=== PATIENT | male | born 1955 | race Caucasian/White ===

== ENCOUNTER 2020-08-14 07:42 | Outpatient (CLI) | payer MEDICARE, SELFPAY ==
[2020-08-14 07:56] LABS: Basophils Absolute Auto 0.05 K/mm3 (0.00-0.10); Basophils Percent Auto 0.8 % (0.0-1.0); Eosinophils Absolute Auto 0.65 K/mm3 (0.02-0.50); Eosinophils Percent Auto 9.8 % (1.0-6.0); Hematocrit 40.6 % (37.0-46.0); Hemoglobin 13.6 g/dL (12.4-15.3); Immature Granulocyte Absolute 0.02 K/mm3 (0.00-0.00); Immature Granulocyte Percent A 0.3 % (0.0-0.0); Lymphocytes Absolute Auto 1.73 K/mm3 (1.10-4.50); Lymphocytes Percent Auto 26.2 % (18.0-42.0); Mean Corpuscular HGB Conc 33.5 g/dL (32.0-36.0); Mean Corpuscular Hemoglobin 30.6 pg (27.0-31.0); Mean Corpuscular Volume 91.4 fL (78.0-102.0); Mean Platelet Volume 9.5 fl (8.7-11.0); Monocytes Absolute Auto 0.55 K/mm3 (0.10-0.90); Monocytes Percent Auto 8.3 % (2.0-11.0); Neutrophils Absolute Auto 3.6 K/mm3 (1.7-7.2); Neutrophils Percent Auto 54.6 % (50.0-70.0); Platelet Count Result 277 K/mm3 (150-420); Red Blood Count 4.44 M/mm3 (4.70-6.10); Red Cell Distribution Width 11.8 % (11.6-14.4); White Blood Count 6.6 K/mm3 (4.8-10.8)
== END 2020-08-14 07:43 | disposition home or self-care (01) ==
PROVIDERS: PCP Internal Medicine; Visit Provider Internal Medicine
DX: D64.0 Hereditary sideroblastic anemia (principal)
CPT/HCPCS: 36415; 85025

== ENCOUNTER 2021-01-20 08:40 | Outpatient (CLI) | payer MEDICARE, OTHER, SELFPAY | END 2021-01-20 08:41 | disposition home or self-care (01) | PROVIDERS: PCP Internal Medicine; Visit Provider Internal Medicine | DX: H93.19 Tinnitus, unspecified ear (principal) | CPT/HCPCS: 92557; 92567 ==

== ENCOUNTER 2022-03-18 08:14 | Outpatient (RCR) | payer MEDICARE, SELFPAY ==
--- NOTE | 2022-03-18 08:05 | PTOPEVAL ---
Thank you for referring José Damon to [facility].? The patient is scheduled to be seen for therapy? ____x/week for ___ weeks. Please review, sign, date and return this plan of care PAUL. I agree with and certify that the following plan of care is medically necessary. Referring Physician Date Admitting Provider: Attending Provider: Mellissa Morales MD Referring Provider: *PT Outpatient Evaluation Start: 03/18/22 07:00 Freq: Status: Active Protocol: Document 03/18/22 07:00 [facility] (Rec: 03/18/22 08:04 [facility] [id number]) Therapy Assessment Status Assessment Status Assessment Status Evaluation Evaluation Information Problem Diagnosis tinnitus, imbalance, chronic labrynthitis Onset 03/14/22 Subjective Information patient reports his MD is Query Text:As Reported By Patient/ wanting him to come over and Family have therapy. he reports he has ringing in his ears. 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 he reports he does not want to fall at work. he reports he had a foot operation years ago and reports he does not have al ot of feeling in the R foot. he attributes his balance issues to this issue. he reports he has fallen 0 times in the last month. he reports however he has fallen this year. 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 he reports no dizziness, but he just gets unsteady on his feet . he reports he is most unsteady in tight quarters. he reports in addition to his feet and imbalance he has back troubles as well. Prior Level of Function Comments Additional Prior Level of Function he reports he has been Comments unsteady for the past 2 years. he reports since losing weight he has been more unsteady. Pain Assessment Timing of Pain Assessment Timing of Pain Assessment Assessment Pain Scale Pain Scale Used Numeric (1 - 10) Self Report Pain Assessment Generalized Reported Pain Level 0 Pain Frequency Chronic,Intermittent Greatest Pain Intensity
--- NOTE | 2022-04-15 08:55 | PTOPEVAL ---
Thank you for referring José Damon to [facility].? The patient is scheduled to be seen for therapy? ____x/week for ___ weeks. Please review, sign, date and return this plan of care PAUL. I agree with and certify that the following plan of care is medically necessary. 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 He states that he often has to watch the floor when walking around his house due to being nervous about hitting objects on the floor. However, he has not had any falls since beginning therapy. He reports that he also feels more flexible. He also states that he has gym equipment at home and that he plans to get back to using the weights more. Pain Assessment Timing of Pain Assessment Timing of Pain Assessment Assessment Self Report Self Report Pain Level 0 Pain Score Pain Score 0: Self Report Lower Extremity Muscle Strength Testing Hip Strength Bilateral Hip Flexion Strength 5 Normal Hip Abduction Strength 4+ Good + Knee Strength Bilateral Knee Flexion Strength 5 Normal Knee Extension Strength 5 Normal Ankle Strength Right Ankle Dorsiflexion Strength 5 Normal Ankle Plantarflexion Strength 4+ Good + Left Ankle Dorsiflexion Strength 5 Normal Ankle Plantarflexion Strength 4+ Good + Palpation Assessment Palpation Palpation 15 STS in 30 sec Balance Assessment Tinetti Balance Assessment Sitting Balance Steady, safe Ability to Arise Able, w/o using arms Attempts to Arise Arises on 1st attempt Immediate Standing Balance Steady w/o support Standing Balance Narrow stance w/o support Nudged Response Steady Standing with Eyes Closed Steady Step Pattern Turning 360 Degrees Continuous steps S
== END 2022-04-15 10:23 | disposition home or self-care (01) ==
LOC: CHSPT 08:14
PROVIDERS: PCP Internal Medicine; Visit Provider Internal Medicine
DX: H93.19 Tinnitus, unspecified ear (principal); R26.89 Other abnormalities of gait and mobility
CPT/HCPCS: 97110; 97112; 97161; 97530

== ENCOUNTER 2022-03-22 08:12 | Outpatient (CLI) | payer MEDICARE, SELFPAY ==
--- NOTE | ~2022-03-22 | MR_ITS ---
EXAMINATION: MR brain/brain stem wo con DATE: 03/22/2022 09:04 INDICATION: 3 weeks of imbalance, ringing in the left ear and confusion TECHNIQUE: Magnetic resonance imaging (MRI) of the brain and brainstem was performed without intraven ous contrast. Sequences included sagittal and axial T1-weighted SE, axial diffusion-weighted FS SE, a xial T2*-weighted GRE, axial T2-weighted FLAIR, and axial T2-weighted FSE. Apparent diffusion coeffic ient (ADC) maps were created. COMPARISON: None. FINDINGS: There are no areas of restricted diffusion to suggest acute infarction. No intracranial hemorrhage or abnormal intracranial mass lesion. There are scattered areas of nonspecific increased T2-weighted si gnal intensity in the cerebral white matter, predominantly involving the deep and periventricular whi te matter. There are no intraparenchymal signal abnormalities seen on the other pulse sequences. The ventricles are symmetric and normal in size. There are no abnormal extra-axial fluid collections. Abdiel w voids are seen in the cerebral arteries on the T2-weighted sequences consistent with their expected patency. Moderate mucosal thickening the right ethmoid and sphenoid sinuses. Additional mild mucoper iosteal thickening the left ethmoid and left maxillary sinuses. Visualized orbits and soft tissues ar e otherwise unremarkable. IMPRESSION: 1. Moderate scattered periventricular predominant nonspecific white matter T2 hyperintensity likely s equela of chronic small vessel ischemic disease. No other acute intracranial process. Reviewed, dictated and finalized at location A. IMPRESSION: 1. Moderate scattered periventricular predominant nonspecific white matter T2 h yperintensity likely sequela of chronic small vessel ischemic disease. No other acute intracranial process.
== END 2022-03-22 08:13 | disposition home or self-care (01) ==
LOC: CHSIMG 08:14
PROVIDERS: PCP Internal Medicine; Visit Provider Internal Medicine
DX: H93.19 Tinnitus, unspecified ear (principal); R26.89 Other abnormalities of gait and mobility
CPT/HCPCS: 70551

== ENCOUNTER 2023-05-04 00:08 | Day surgery (SDC) | payer MEDICARE, SELFPAY ==
[2023-04-28 13:27] VITALS: BMI 28.5
[2023-05-04 10:22] VITALS: BP 134/76; PULSE 56; RESP 18; TEMP 36.4; O2SAT 100
[2023-05-04] MEDS: LACTATED RINGERS 1,000 ML 150 ML IV CONT (10:30)
--- NOTE | 2023-05-04 10:54 | PM.HPGS ---
History of Present Illness History of Present Illness Consent: Risks, benefits, and alternatives have been discussed and questions answered. Patient agrees to proceed with procedure. Chief complaint: hx colon polyps Narrative: José Damon is a 67 year old male Presents for screening colonoscopy. Patient is polyps on a previous colonoscopy 5 years ago. Patient's current weight appetite and bowel movements are normal. Patient denies abdominal pain. he has had no bleeding. Family history noncontributory. Patient presents today for neoplasia screening. Review of Systems Review of Systems: Review of systems noncontributory. [facility] Family History Family History Father Heart disease Social History Social History Smoking status: Never smoker Alcohol intake: current Drinks per week: 8 Alcohol use details: beer Substance use: never Substance use type: does not use Living arrangements: with family Spiritual care concerns: No Meds Home Medications and Allergies Home Medications Medication Instructions Recorded Confirmed Type atorvastatin 80 mg tablet 80 mg PO DAILY 07/01/21 04/28/23 History finasteride 1 mg tablet 1 mg PO DAILY 07/01/21 04/28/23 History lisinopril 2.5 mg tablet 2.5 mg PO DAILY 07/01/21 04/28/23 History metoprolol succinate 25 mg 12.5 mg PO BID 07/01/21 04/28/23 History tablet,extended release 24 hr sodium,potassium,mag sulfates 17.5 See Rx Instructions PO .COMPLEX 04/13/23 Rx gram-3.13 gram-1.6 gram oral soln #354 mL (Suprep Bowel Prep Kit) Adult Aspirin EC Low Strength 81 mg PO DAILY 04/28/23 04/28/23 History celecoxib 200 mg capsule 200 mg PO BID 04/28/23 04/28/23 History multivitamin with minerals-folic 1 tablet PO DAILY 04/28/23 04/28/23 History acid 0.4 mg tablet pantoprazole 40 mg tablet,delayed 40 mg PO DAILY 04/28/23 04/28/23 History release solifenacin 10 mg tablet 5 mg PO DAILY 04/28/23 04/28/23 History timolol maleate 0.5 % eye drops 1 drp LEFT EYE BID 04/28/23 04/28/23 History Allergies Allergy/AdvReac Type Severity Reaction Status Date / Time No Known Allergies Allergy Verified 05/04/23 10:20 Vital Signs Vital Signs - 24 hr 05/04/23 10:22 Temperature 97.5 F L Pulse Rate 56 L Respiratory Rate 18 Blood Pressure 134/76 Pulse Oximetry 100 Oxygen Delivery Room Air Exam Narrative: Physical exam reveals patient to be alert. Vital signs stable. HEENT exam is unremarkable. Patient is anicteric. Lungs are clear to auscultation and percussion. Heart is without murmur or extra sounds. Abdomen bowel sounds are present soft nontender with no organomegaly. Digital external rectal exam normal. Assessment and Plan Assessment and plan (1) History of colon polyps: Code(s): Z86.010 - Personal history of colonic polyps Status: Acute Assessment and Plan: Patient has a history of colon polyps. For this reason screening colonoscopy advised. Further recommendations may be given after endoscopy.
--- NOTE | 2023-05-04 11:00 | P.PNAN_ITS ---
Anes - Initial Pre Proc Eval Procedure: Operation Date: 05/04/23 11:30 Proposed Procedures p Colonoscopy - Barry Loyd MD Date/Time: 05/04/23 11:00 Surgeon: Barry Loyd MD Pre Op Diagnosis: hx colon polyps Patient Data Age: 67 Gender: M Height: 1.8 m Weight: 92.3 kg Last Vital Signs Temp 97.5 F L 05/04/23 10:22 Pulse 56 L 05/04/23 10:22 Resp 18 05/04/23 10:22 BP 134/76 05/04/23 10:22 Pulse Ox 100 05/04/23 10:22 O2 Del Method Room Air 05/04/23 10:22 Allergies Allergy/AdvReac Type Severity Reaction Status Date / Time No Known Allergies Allergy Verified 05/04/23 10:20 Home Medications Medication Instructions Recorded Confirmed Type atorvastatin 80 mg tablet 80 mg PO DAILY 07/01/21 04/28/23 History finasteride 1 mg tablet 1 mg PO DAILY 07/01/21 04/28/23 History lisinopril 2.5 mg tablet 2.5 mg PO DAILY 07/01/21 04/28/23 History metoprolol succinate 25 mg 12.5 mg PO BID 07/01/21 04/28/23 History tablet,extended release 24 hr sodium,potassium,mag sulfates 17.5 See Rx Instructions PO .COMPLEX 04/13/23 Rx gram-3.13 gram-1.6 gram oral soln #354 mL (Suprep Bowel Prep Kit) Adult Aspirin EC Low Strength 81 mg PO DAILY 04/28/23 04/28/23 History celecoxib 200 mg capsule 200 mg PO BID 04/28/23 04/28/23 History multivitamin with minerals-folic 1 tablet PO DAILY 04/28/23 04/28/23 History acid 0.4 mg tablet pantoprazole 40 mg tablet,delayed 40 mg PO DAILY 04/28/23 04/28/23 History release solifenacin 10 mg tablet 5 mg PO DAILY 04/28/23 04/28/23 History timolol maleate 0.5 % eye drops 1 drp LEFT EYE BID 04/28/23 04/28/23 History Patient hx anesthesia problems: none Family hx anesthesia problems: none Results Review: All pre-operative results and documents have been reviewed as part of the pre- operative evaluation. [facility] Family History Family History Father Heart disease Social History Social History Smoking status: Never smoker Alcohol intake: current Drinks per week: 8 Alcohol use details: beer Substance use: never Substance use type: does not use Living arrangements: with family Spiritual care concerns: No Anes - Eval Final PreProcedure Day of Procedure 05/04/23 11:00 Patient weight: normal Heart: regular rate and rhythm Lungs: clear to auscultation Airway: Mallampati scale class II Neurological: alert and oriented Last oral intake: >/= 8 hours ASA classification: III Emergent: no Anesthetic plan: proceed Anesthesia type and monitoring: general GIVS and standard monitoring Results Review: All pre-operative results and documents have been reviewed as part of the pre- operative evaluation. Informed Consent: The patient's anesthetic plan and its attendant risks and benefits were discussed with the patient/family/POA. Questions were solicited and answers provided to the satisfaction of the patient/family/POA.
[2023-05-04 11:20] VITALS: BP 136/60; PULSE 58; RESP 20; O2SAT 100
[2023-05-04 11:30] VITALS: BP 100/63; PULSE 54; RESP 20; O2SAT 100
[2023-05-04 11:40] VITALS: BP 116/68; PULSE 54; RESP 15; O2SAT 100
== END 2023-05-04 11:46 | disposition home or self-care (01) ==
PROVIDERS: PCP Internal Medicine; Visit Provider Internal Medicine Gastroenterology
PROC: 0DJD8ZZ Inspection of Lower Intestinal Tract, Via Natural or Artificial Opening Endoscopic (ICD-10-PCS; CPT 45378; principal; 2023-05-04 11:30)
DX: Z12.11 Encounter for screening for malignant neoplasm of colon (principal); K57.30 Diverticulosis of large intestine without perforation or abscess without bleeding; Z86.010 Personal history of colon polyps
CPT/HCPCS: G0105; J2704; J7120

== ENCOUNTER 2023-06-28 07:33 | Outpatient (CLI) | payer MEDICARE, SELFPAY ==
--- NOTE | ~2023-06-28 | CT_ITS ---
EXAMINATION: CT abdomen pelvis w con DATE: 06/28/2023 08:25 INDICATION: Right lower quadrant abdominal pain. TECHNIQUE: Computed tomography (CT) of the abdomen and pelvis was performed with 100 mL Omnipaque 350 intravenous contrast. Automated exposure control and iterative reconstruction technique were employe d. The dose-length product was 774.53 mGy-cm. COMPARISON: CT abdomen and pelvis 03/08/2019 FINDINGS: The visualized portions of the lung bases are clear without pneumonia or pleural effusion. The heart size is normal. No pericardial effusion. There is a small sliding hiatal hernia. There are cysts in the liver measuring up to 2.5 cm. The gallbladder, spleen, pancreas, adrenal glands, and lef t kidney are normal. There is a 2.1 cm cyst in right kidney. There is an umbilical hernia containing fat. The prostate is severely enlarged. There is a right inguinal hernia containing the appendix. The re is a left inguinal hernia containing fat. There is diverticulosis of the colon without evidence of diverticulitis. There is severe lumbar spondylosis. IMPRESSION: 1. Right inguinal hernia containing the appendix. 2. Left inguinal hernia containing fat. 3. Small sliding hiatal hernia. Reviewed, dictated and finalized at location A.
[2023-06-28 08:01] LABS: Estimated Glomerular Filt Rate > 60
== END 2023-06-28 07:34 | disposition home or self-care (01) ==
PROVIDERS: PCP Internal Medicine; Visit Provider Internal Medicine
DX: R10.31 Right lower quadrant pain (principal); K40.20 Bilateral inguinal hernia, without obstruction or gangrene, not specified as recurrent; K44.9 Diaphragmatic hernia without obstruction or gangrene
CPT/HCPCS: 74177; Q9967

== ENCOUNTER 2023-09-08 09:01 | Outpatient (CLI) | payer MEDICARE, SELFPAY ==
--- NOTE | 2023-09-08 09:25 | ECG_ITS ---
Measurements Intervals [place] Rate: 47 P: 23 W[place]: 219 QRS: -27 QRSD: 119 T: -19 QT: 442 QTc: 393 Interpretive Statements SINUS BRADYCARDIA WITH FIRST DEGREE AV BLOCK BORDERLINE LEFT AXIS DEVIATION [QRS AXIS < -20] MODERATE VOLTAGE CRITERIA FOR LVH, CONSIDER NORMAL VARIANT [MEETS CRITERIA IN ONE OF: R(aVL), S(V1), R(V5), R(V5/V6)+S(V1)] ABNORMAL ECG NO PREVIOUS ECG AVAILABLE FOR COMPARISON Electronically Signed On 09-08-2023 15:06:33 CDT by Reymundo Mcintosh M.D.
== END 2023-09-08 09:02 | disposition home or self-care (01) ==
LOC: ANHSURGERY 09:04
PROVIDERS: PCP Internal Medicine; Visit Provider Surgery
DX: Z01.818 Encounter for other preprocedural examination (principal); I25.10 Atherosclerotic heart disease of native coronary artery without angina pectoris; K40.20 Bilateral inguinal hernia, without obstruction or gangrene, not specified as recurrent
CPT/HCPCS: 36415; 86850; 86900; 86901; 93005

== ENCOUNTER 2023-09-13 00:25 | Day surgery (SDC) | payer MEDICARE, SELFPAY ==
[2023-09-05 13:29] VITALS: BMI 27.9
--- NOTE | 2023-09-05 13:30 | PC.NURSE ---
Report to the Outpatient Waiting Room, entrance under the green pavilion located off [facility], at time _0730_ on date _[id number]_. Planned Procedure Time: _0930_. Time changes happen often and if your time is changed the preop area will call you the afternoon before. - You and your visitor will be asked to self-screen and do not enter if you have any COVID symptoms. - A mask is optional within the hospital at this time. Patients may have clear liquids (water, carbonated beverages, clear teas, apple juice) until 3 hours prior to surgery with a maximum of 20 ounces. - No food from midnight until time of surgery Take the following medications with a SIP of water the morning of surgery: ___Metoprolol DO NOT STOP ANY OF YOUR OTHER PRESCRIPTION MEDICATIONS PRIOR TO SURGERY ?EXCEPT THE FOLLOWING Medications to discontinue per physician Multivitamin Date to take last [id number] Please no make-up, nail st helenian, hairspray, perfume, deodorant, or body powder the day of surgery. No jewelry (including any body piercings) or valuables the day of surgery, leave them at home. Please take a shower or bath the night before, or the morning of, surgery with an antibacterial soap. Wear comfortable, loose fitting clothing. - Jewelry must be removed prior to entering the operating room. Rings and piercings that are not removed may be cut off. - The hospital will not accept responsibility for valuables. - Please leave all valuables, including medications, at home the day of surgery. If you are going home after surgery, a licensed driver/guide must drive you home. - NO public transportation without another adult if you receive anesthesia. - We recommend that an adult stay with you for 24 hours following discharge. - We also recommend that you do not drive, make important decision, drink alcoholic beverages, or take any drugs that were not prescribed by your health care provider for at least 24 hours after your discharge time. Follow any additional instructions given to you from your surgeon. If you or anyone in your household have experienced Covid symptoms in the past week, please notify your surgeon or the nurse liaison at the phone number below for possible testing. Telephone instructions given to __José__and asked if any additional questions and then verbalized understanding. Patient advised to call surgeon office or pre surgery nurse liaison [phone] if any additional questions.
[2023-09-13] VITALS (10 sets, daily range): BP systolic 117–155; BP diastolic 52–75; PULSE 47–53; RESP 10–14; TEMP 36.4–37.2; O2SAT 99–100
[2023-09-13] MEDS: LACTATED RINGERS 1,000 ML 30 ML IV CONT ×2 (08:30→10:43)
[2023-09-13] MEDS: ACETAMINOPHEN 500 MG TABLET 1000 MG PO (08:30)
[2023-09-13] MEDS: KETOROLAC 15 MG/ML VIAL (*BKC) IV PUSH (08:30)
--- NOTE | 2023-09-13 08:42 | WPDHPUPDATE1 ---
History and Physical Update Update Date/Time: 09/13/23 08:42 History and Physical has been reviewed, including an updated exam of the patient. There are NO changes in the patient's condition. Risks, benefits, and alternatives have been discussed and questions answered. Patient agrees to proceed with procedure.
--- NOTE | 2023-09-13 08:42 | PM.IMHP ---
H&P: HPI History of Present Illness Date/Time: 09/13/23 08:42 Chief Complaint: Bilateral inguinal hernia Narrative: This is a 68-year-old man who was recently found to have bilateral inguinal hernias. He was mostly complaining of right groin pain but CT showed evidence of bilateral inguinal hernias. Now presents for bilateral inguinal hernia repair. He denies any changes since last seen in the office. Review of Systems Review of Systems: All systems reviewed & are unremarkable except as noted in HPI and below Constitutional: Constitutional: Denies chills, Denies fever(s), Denies headache(s) and Denies weight loss Eyes: Eyes: Denies change in vision ENT: Denies dizziness, Denies headache(s), Denies neck mass and Denies throat swelling Cardiovascular: Cardiovascular: Denies chest pain, Denies lightheadedness and Denies dyspnea Respiratory: Respiratory: Denies cough, Denies dyspnea and Denies wheezing Gastrointestinal: Gastrointestinal: Denies abdominal pain, Denies change in bowel habits, Denies nausea and Denies vomiting Genitourinary: Genitourinary: Denies hematuria and Denies dysuria Musculoskeletal: Musculoskeletal: Reports as per HPI Integumentary/Breasts: Skin/Breast: Reports as per HPI Neurologic: Denies dizziness and Denies headache(s) Allergic/Immunologic: Allergic/Immunologic: Denies throat swelling and Denies wheezing [facility] Past Medical History Medical History Heart disease Surgical History Surgical History H/O vasectomy History of foot surgery History of intravascular stent placement Family History Family History Father Heart disease Social History Social History Smoking status: Never smoker Alcohol intake: current Drinks per week: 8 Alcohol use details: beer Substance use: never Substance use type: does not use Living arrangements: with family Spiritual care concerns: No Meds Home Medications and Allergies Home Medications Medication Instructions Recorded Confirmed Type atorvastatin 80 mg tablet 80 mg PO DAILY 07/01/21 09/05/23 History finasteride 1 mg tablet 1 mg PO DAILY 07/01/21 09/05/23 History lisinopril 2.5 mg tablet 2.5 mg PO DAILY 07/01/21 09/05/23 History metoprolol succinate 25 mg 12.5 mg PO BID 07/01/21 09/05/23 History tablet,extended release 24 hr Adult Aspirin EC Low Strength 81 mg PO DAILY 04/28/23 09/05/23 History celecoxib 200 mg capsule 200 mg PO BID 04/28/23 09/05/23 History multivitamin with minerals-folic 1 tablet PO DAILY 04/28/23 09/05/23 History acid 0.4 mg tablet solifenacin 10 mg tablet 5 mg PO DAILY 04/28/23 09/05/23 History timolol maleate 0.5 % eye drops 1 drp LEFT EYE BID 04/28/23 09/05/23 History Allergies Allergy/AdvReac Type Severity Reaction Status Date / Time No Known Allergies Allergy Verified 09/05/23 13:17 Exam Const: General: no acute distress and alert Orientation/consciousness: patient oriented x3 HENMT: Head: normocephalic and atraumatic Ears: hearing grossly normal bilaterally Face/Nose/Sinus: Normal nares present Mouth: Yes Normal oral and palatal mucosa present Eyes: Periorbital: periorbital findings normal Sclera: sclerae normal EOM: EOMs intact bilaterally Neck: Neck: normal visual inspection, no lymphadenopathy and trachea midline Chest: Chest palpation & inspection: normal inspection of the chest Resp: Effort & Inspection: normal respiratory effort Auscultation: clear to auscultation bilaterally Cardio: Jugular venous distension: no JVD Rate: regular rate Rhythm: regular rhythm Heart sounds: S1 normal heart sound present and S2 normal heart sound present Peripheral pulses: Peripheral pulses 2+ throughout GI: Inspection: normal to inspection GI Palp:
--- NOTE | 2023-09-13 08:51 | P.PNAN_ITS ---
Anes - Initial Pre Proc Eval Procedure: Operation Date: 09/13/23 09:30 Proposed Procedures p Laparoscopic Bilateral Inguinal Hernia Repair with Mesh, Davinci Assisted - Mor Rossi DO Date/Time: 09/13/23 08:51 Surgeon: Mor Rossi DO Pre Op Diagnosis: bilat inguinal hernia Patient Data Age: 68 Gender: M Height: 1.8 m Weight: 90.9 kg Allergies Allergy/AdvReac Type Severity Reaction Status Date / Time No Known Allergies Allergy Verified 09/05/23 13:17 Home Medications Medication Instructions Recorded Confirmed Type atorvastatin 80 mg tablet 80 mg PO DAILY 07/01/21 09/05/23 History finasteride 1 mg tablet 1 mg PO DAILY 07/01/21 09/05/23 History lisinopril 2.5 mg tablet 2.5 mg PO DAILY 07/01/21 09/05/23 History metoprolol succinate 25 mg 12.5 mg PO BID 07/01/21 09/05/23 History tablet,extended release 24 hr Adult Aspirin EC Low Strength 81 mg PO DAILY 04/28/23 09/05/23 History celecoxib 200 mg capsule 200 mg PO BID 04/28/23 09/05/23 History multivitamin with minerals-folic 1 tablet PO DAILY 04/28/23 09/05/23 History acid 0.4 mg tablet solifenacin 10 mg tablet 5 mg PO DAILY 04/28/23 09/05/23 History timolol maleate 0.5 % eye drops 1 drp LEFT EYE BID 04/28/23 09/05/23 History Patient hx anesthesia problems: none Family hx anesthesia problems: none Results Review: All pre-operative results and documents have been reviewed as part of the pre- operative evaluation. [facility] Past Medical History Medical History Heart disease Surgical History Surgical History H/O vasectomy History of foot surgery History of intravascular stent placement Family History Family History Father Heart disease Social History Social History Smoking status: Never smoker Alcohol intake: current Drinks per week: 8 Alcohol use details: beer Substance use: never Substance use type: does not use Living arrangements: with family Spiritual care concerns: No Anes - Eval Final PreProcedure Day of Procedure 09/13/23 08:51 Patient weight: overweight Heart: regular rate and rhythm Lungs: clear to auscultation Airway: Mallampati scale class II Neurological: alert and oriented Last oral intake: >/= 8 hours ASA classification: III Emergent: no Anesthetic plan: proceed Anesthesia type and monitoring: general ETT and standard monitoring Results Review: All pre-operative results and documents have been reviewed as part of the pre- operative evaluation. Informed Consent: The patient's anesthetic plan and its attendant risks and benefits were discussed with the patient/family/POA. Questions were solicited and answers provided to the satisfaction of the patient/family/POA.
[2023-09-13] MEDS: ceFAZolin 2 GM/D5W 50 ML 2 GM/50 ML BAG IVPB (09:16)
[2023-09-13] MEDS: BUPIVACAINE/EPINEPHRINE 0.5% 50 ML VIAL 30 ML INFILTRATE (09:40)
--- NOTE | 2023-09-13 10:37 | W.PM.PROC2 ---
Procedure Note - Detailed Date of Procedure 09/13/23 Pre-op Diagnosis Bilateral inguinal hernia Post-op Diagnosis Same (Bilateral indirect inguinal hernia) Procedure Performed Laparoscopic bilateral inguinal hernia repair with mesh, da Sohail assisted Surgeon Mor Rossi DO Anesthesia General and Local (0.5% bupivacaine with epinephrine) Indications This is a 68-year-old man who presented with the right groin bulge and discomfort over the past 3 months. He was found to have a reducible right inguinal hernia exam. CT also showed evidence a left inguinal hernia. Discussions were made with the patient about treatment options and decision was made to proceed with robotic assisted laparoscopic bilateral inguinal hernia repair with mesh Findings Laparoscopic bilateral inguinal hernia repair was performed. The patient was found to have a moderate-sized indirect right inguinal hernia and a small indirect left inguinal hernia. Robotic transabdominal preperitoneal approach was utilized. A wide enough preperitoneal pocket was created bilaterally and large 3DMax mid mesh was placed overlying each myopectineal orifice. No specimens were obtained for pathology. Description of Procedure Procedure as well as risks, benefits, and alternatives were discussed with the patient. Written consent was obtained and placed in chart prior to procedure. Patient was brought back to surgical suite. He was placed supine on operating table. Time-out was done to confirm patient and procedure. He was then intubated by Anesthesia Department. His abdomen was prepped and draped in sterile fashion using chlorhexidine prep. 0.5% bupivacaine with epinephrine was infiltrated at each location for incision. An 8 mm incision was made in the left lateral abdomen, and a 5 mm Optiview trocar was advanced through the abdominal layers under direct visualization. Once inside the abdominal cavity, carbon dioxide insufflation was used to create a pneumoperitoneum. A camera was inserted and the abdominal cavity was inspected. The patient was placed in slight Trendelenburg position. An 8 millimeter incision was made on the right lateral abdomen and an 8 millimeter trocar was inserted under direct visualization. Another 8 millimeter incision was made just superior to the umbilicus and an 8 millimeter trocar was inserted under direct visualization. The 5 mm port was then removed and this was replaced with another 8 mm robotic port. The robotic arms were brought up to the patient's bedside and secured to the ports. The camera and instruments were inserted. I then moved over to the robotic console and took control of the camera and instruments. After careful inspection of the abdominal cavity, I began scoring the peritoneum along the right lower quadrant using scissors with electrocautery. The preperitoneal plane was entered and this was carefully dissected caudally along the inferior epigastric vessels. Careful dissection with scissors with electrocautery and blunt dissection was used to continue this dissection. I dissected far enough laterally to allow for mesh placement, and also dissected medially to identify the pubic arch and Maldonado's ligament. The hernia sac was identified and carefully dissected posteriorly. The cord contents were also identified and the peritoneum was carefully dissected far enough posteriorly to allow for mesh placement. Once an adequate pocket was created, I then placed the mesh within the preperitoneal pocket and carefully unfolded it. The mesh was centered on the hernia defect with adequate overlap circumferentially. The inferior edge of the mesh was inspected to ensure that it was far enough away from the peritoneal edge. The mesh appeared in proper position overlying the entire myopectineal orifice. The mesh was secured using 3-0 Vicryl simple interrupted sutures in Maldonado's ligament, the superior medial edge, and superior lateral edge of the mesh. The peritone
[2023-09-13] MEDS: oxyCODONE HCL (*CRX) 5 MG TAB IR PO (13:11)
== END 2023-09-13 13:46 | disposition home or self-care (01) ==
PROVIDERS: PCP Internal Medicine; Visit Provider Surgery
PROC: 8E0Y4CZ Robotic Assisted Procedure of Lower Extremity, Percutaneous Endoscopic Approach (ICD-10-PCS; CPT 49650; principal; 2023-09-13 09:30)
DX: K40.20 Bilateral inguinal hernia, without obstruction or gangrene, not specified as recurrent (principal); I51.9 Heart disease, unspecified; Z95.828 Presence of other vascular implants and grafts; Z79.82 Long term (current) use of aspirin
CPT/HCPCS: 49650; S2900; A9270; C1781; J0690; J1100; J1885; J2250; J2270; J2405; J2704; J2710; J7120

== ENCOUNTER 2024-03-18 09:45 | Outpatient (CLI) | payer MEDICARE, SELFPAY ==
[2024-03-18 10:06] LABS: Basophils Absolute Auto 0.05 K/mm3 (0.00-0.10); Basophils Percent Auto 0.8 % (0.0-1.0); Eosinophils Absolute Auto 0.34 K/mm3 (0.02-0.50); Eosinophils Percent Auto 5.3 % (1.0-6.0); Hematocrit 39.7 % (37.0-46.0); Hemoglobin 13.3 g/dL (12.4-15.3); Immature Granulocyte Absolute 0.02 K/mm3 (0.00-0.00); Immature Granulocyte Percent A 0.3 % (0.0-0.0); Lymphocytes Absolute Auto 1.38 K/mm3 (1.10-4.50); Lymphocytes Percent Auto 21.7 % (18.0-42.0); Mean Corpuscular HGB Conc 33.5 g/dL (32-36); Mean Corpuscular Hemoglobin 30.2 pg (27.0-31.0); Mean Corpuscular Volume 90.2 fL (78.0-102.0); Mean Platelet Volume 9.7 fl (8.7-11.0); Monocytes Absolute Auto 0.74 K/mm3 (0.10-0.90); Monocytes Percent Auto 11.6 % (2.0-11.0); Neutrophils Absolute Auto 3.84 K/mm3 (1.70-7.20); Neutrophils Percent Auto 60.3 % (50.0-70.0); Platelet Count Result 279 K/mm3 (150-420); Red Cell Distribution Width 12.1 % (11.6-14.4); White Blood Count 6.4 K/mm3 (4.8-10.8)
[2024-03-18 11:04] LABS: Alanine Aminotransferase 37 U/L (16-63); Albumin Level 3.5 g/dL (3.4-5.0); Alkaline Phosphatase 69 U/L (46-116); Anion Gap 8 mmol/L (4-12); Aspartate Amino Transferase 22 U/L (15-37); Bilirubin,Total 0.7 mg/dL (0.00-1.00); Blood Urea Nitrogen 15 mg/dL (7-18); CRP 1.6 mg/dL (0.0-0.9); Calcium 8.6 mg/dL (8.5-10.1); Carbon Dioxide 30 mmol/L (21-32); Chloride 106 mmol/L (98-108); Estimated Glomerular Filt Rate > 60; Glucose 103 mg/dL (70-99); Osmolality Calculated 298 mOsm/kg (285-295); Potassium 4.6 mmol/L (3.5-5.1); Sodium 144 mmol/L (136-145); Total Protein 6.2 g/dL (6.4-8.2)
[2024-03-18 11:11] LABS: Erythrocyte Sedimentation Rate 8 mm/hr (0-20)
== END 2024-03-18 09:46 | disposition home or self-care (01) ==
LOC: CHSLAB 09:46
PROVIDERS: PCP Internal Medicine; Visit Provider Internal Medicine
DX: R19.7 Diarrhea, unspecified (principal)
CPT/HCPCS: 36415; 80053; 83605; 85025; 85652; 86140

== ENCOUNTER 2024-03-19 07:14 | Outpatient (CLI) | payer MEDICARE, SELFPAY ==
[2024-03-19 08:13] LABS: Toxigenic C. Diff NEGATIVE (NEGATIVE)
[2024-03-25 14:16] LABS: Rotavirus Stool Not Detected
[2024-03-25 14:17] LABS: Norovirus RNA PCR, Stool Not Detected
== END 2024-03-19 07:15 | disposition home or self-care (01) ==
LOC: CHSLAB 07:16
PROVIDERS: PCP Internal Medicine; Visit Provider Internal Medicine
DX: R19.7 Diarrhea, unspecified (principal)
CPT/HCPCS: 83993; 87045; 87177; 87209; 87425; 87427; 87449; 87493; 87798

== ENCOUNTER 2024-03-22 12:58 | Outpatient (CLI) | payer MEDICARE, SELFPAY ==
--- NOTE | ~2024-03-22 | CT_ITS ---
CT of the Abdomen and Pelvis: Indication: Abdominal pain Technique: 2.5 mm axial scans were obtained through the abdomen and pelvis following intravenous adm inistration of 100 cc of Omnipaque 350. Dose reduction technique was used on this scan by utilizing a utomated exposure control and iterative reconstruction technique. The dose-length product (DLP) was 8 01.26 mGy-cm. COMPARISON: 06/28/2023 Findings: Scans through the lung bases are unremarkable. Stable hepatic cyst present. The liver, spleen, pancreas, gallbladder, adrenals and kidneys are other bennett within normal limits. No evidence of aortic aneurysm. No lymphadenopathy. No bowel obstruction or bowel wall thickening. There is no evidence to suggest acute appendicitis. Images through the pelvis were performed. Possible mild diffuse urinary bladder wall thickening. Pros rojas gland is markedly enlarged. Small bilateral fat-containing inguinal hernias are present. No asci zamzam. Impression: Questionable cystitis. Correlate with urinalysis. Markedly enlarged prostate gland. Small bilateral fat-containing inguinal hernias. Reviewed, dictated and finalized at location . Impression: Questionable cystitis. Correlate with urinalysis. Markedly enlarged prostate gland. Small bilateral fat-containing inguinal hernias.
== END 2024-03-22 12:59 | disposition home or self-care (01) ==
LOC: CHSIMG 12:58
PROVIDERS: PCP Internal Medicine; Visit Provider Internal Medicine
DX: R10.9 Unspecified abdominal pain (principal); R19.7 Diarrhea, unspecified; N40.0 Benign prostatic hyperplasia without lower urinary tract symptoms; K40.20 Bilateral inguinal hernia, without obstruction or gangrene, not specified as recurrent
CPT/HCPCS: 74177; Q9967

== ENCOUNTER 2024-03-27 10:08 | Outpatient (CLI) | payer MEDICARE, SELFPAY ==
[2024-03-30 04:13] LABS: Immunoglobulin A 173 mg/dL (70-320); TTG IGA AB <1.0 U/mL
[2024-03-31 12:59] LABS: S cerevisiae Ab (IgA) 11.5 U (<=20.0); S cerevisiae Ab (IgG) 19.3 U (<=20.0)
[2024-03-31 22:36] LABS: ANCA Screen Negative (Negative)
[2024-04-01 20:18] LABS: Myeloperoxidase Ab <1.0 AI (<1.0); Proteinase-3 Ab <1.0 AI (<1.0)
[2024-04-03 14:43] LABS: Fecal Fat, Ql Normal (Normal)
[2024-04-04 18:43] LABS: Calprotectin, Stool 1090 mcg/g
== END 2024-03-27 10:09 | disposition home or self-care (01) ==
LOC: CHSLAB 10:17
PROVIDERS: PCP Internal Medicine; Visit Provider Internal Medicine
DX: R19.7 Diarrhea, unspecified (principal)
CPT/HCPCS: 36415; 82705; 82784; 83516; 83993; 86036; 86671

== ENCOUNTER 2024-05-01 21:26 | Emergency (ER) | payer MEDICARE, SELFPAY ==
[2024-05-01] VITALS (8 sets, daily range): BP systolic 144–178; BP diastolic 73–94; PULSE 60–68; RESP 15–18; TEMP 36.7; O2SAT 96–100
--- NOTE | ~2024-05-01 | XR_ITS ---
EXAMINATION: XR chest 1V portable DATE: 05/01/2024 21:58 INDICATION: Chest pain TECHNIQUE: frontal view of the chest was obtained. COMPARISON: Chest radiograph dated 08/31/2017 FINDINGS: The lungs remain clear with no focal airspace opacities, pulmonary edema, pleural effusion or pneumot horax. The cardiomediastinal silhouette is normal. Visualized bones and soft tissues are unremarkable . IMPRESSION: 1. No acute cardiopulmonary disease. Reviewed, dictated and finalized at location A.
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
--- NOTE | 2024-05-01 21:34 | ECG_ITS ---
Test Date: 2024-05-01 21:34:28 Measurements Intervals [place] Rate: 72 P: 41 [place]: 174 QRS: -28 QRSD: 108 T: 4 QT: 402 QTc: 443 Interpretive Statements SINUS RHYTHM WITH OCCASIONAL VENTRICULAR PREMATURE COMPLEXES BORDERLINE LEFT AXIS DEVIATION [QRS AXIS < -20] MODERATE VOLTAGE CRITERIA FOR LVH, CONSIDER NORMAL VARIANT [MEETS CRITERIA IN ONE OF: R(aVL), S(V1), R(V5), R(V5/V6)+S(V1)] ABNORMAL ECG No previous ECG available for comparison Electronically Signed On 05-03-2024 11:01:34 CDT by Gavino Rajan M.D.
--- NOTE | 2024-05-01 21:36 | PC.NURSE ---
ER provider at the bedside
--- NOTE | 2024-05-01 21:52 | PC.NURSE ---
xray at the bedside
[2024-05-01 21:55] LABS: Basophils Absolute Auto 0.08 K/mm3 (0.00-0.10); Eosinophils Absolute Auto 0.65 K/mm3 (0.02-0.50); Eosinophils Percent Auto 8.3 % (1.0-6.0); Hematocrit 38.9 % (37.0-46.0); Hemoglobin 13.4 g/dL (12.4-15.3); Immature Granulocyte Absolute 0.06 K/mm3 (0.00-0.00); Immature Granulocyte Percent A 0.8 % (0.0-0.0); Lymphocytes Absolute Auto 1.48 K/mm3 (1.10-4.50); Lymphocytes Percent Auto 18.9 % (18.0-42.0); Mean Corpuscular HGB Conc 34.4 g/dL (32-36); Mean Corpuscular Hemoglobin 31.4 pg (27.0-31.0); Mean Corpuscular Volume 91.1 fL (78.0-102.0); Monocytes Absolute Auto 0.75 K/mm3 (0.10-0.90); Monocytes Percent Auto 9.6 % (2.0-11.0); Neutrophils Absolute Auto 4.81 K/mm3 (1.70-7.20); Neutrophils Percent Auto 61.4 % (50.0-70.0); Platelet Count Result 307 K/mm3 (150-420); Red Blood Count 4.27 M/mm3 (4.70-6.10); Red Cell Distribution Width 12.3 % (11.6-14.4); White Blood Count 7.8 K/mm3 (4.8-10.8)
[2024-05-01] MEDS: ASPIRIN 81 MG CHEWABLE TABLET 243 MG PO (21:56)
[2024-05-01 22:09] LABS: Partial Thromboplastin Time 23.6 Sec (23.9-30.70); Prothrombin Time 10.7 Seconds (9.50-12.1)
[2024-05-01 22:13] LABS: Lactic Acid Reflex 1.4 mmol/L (0.4-2.0)
[2024-05-01 22:29] LABS: Troponin I 29.3 ng/L (0.00-60.4)
[2024-05-01 22:48] LABS: Albumin Level 3.7 g/dL (3.4-5.0); Alkaline Phosphatase 74 U/L (46-116); Aspartate Amino Transferase 28 U/L (15-37); Bilirubin,Total 0.4 mg/dL (0.00-1.00); Blood Urea Nitrogen 20 mg/dL (7-18); Estimated CRCL calculation 65 ml/min; Estimated Glomerular Filt Rate > 60; Glucose 156 mg/dL (70-99); Total Protein 6.7 g/dL (6.4-8.2)
[2024-05-01 22:49] LABS: Alanine Aminotransferase 49 U/L (16-63); Anion Gap 9 mmol/L (4-12); Calcium 8.1 mg/dL (8.5-10.1); Carbon Dioxide 27 mmol/L (21-32); Chloride 105 mmol/L (98-108); NT Pro B Type Natriuretic Pept 289 pg/mL (0-125); Osmolality Calculated 297 mOsm/kg (285-295); Potassium 4.3 mmol/L (3.5-5.1); Sodium 141 mmol/L (136-145)
--- NOTE | 2024-05-01 23:23 | PC.NURSE ---
ER provider at the bedside. patient reports that his chest pain has resolved
--- NOTE | 2024-05-01 23:35 | PC.NURSE ---
EKG due at [address] emerson
[2024-05-02] VITALS (8 sets, daily range): BP systolic 120–164; BP diastolic 63–79; PULSE 63–70; RESP 16–21; O2SAT 95–98
--- NOTE | 2024-05-02 00:04 | PC.NURSE ---
patient resting on stretcher in room. call light in reach. urinal at the bedside. offered blanket. does not want one at this time.
--- NOTE | 2024-05-02 01:09 | ECG_ITS ---
Test Date: 2024-05-02 01:09:51 Measurements Intervals [place] Rate: 66 P: 49 [place]: 180 QRS: -36 QRSD: 103 T: 7 QT: 398 QTc: 419 Interpretive Statements SINUS RHYTHM LEFT AXIS DEVIATION [QRS AXIS < -30] LOW QRS VOLTAGE IN PRECORDIAL LEADS [QRS DEFLECTION < 1.0 mV IN CHEST LEADS] MINIMAL VOLTAGE CRITERIA FOR LVH, CONSIDER NORMAL VARIANT [MEETS CRITERIA IN ONE OF: R(aVL), S(V1), R(V5), R(V5/V6)+S(V1)] ABNORMAL ECG Compared to ECG 05/01/2024 21:34:28 Low QRS voltage now present Ventricular premature complex(es) no longer present Electronically Signed On 05-03-2024 11:01:45 CDT by Gavino Rajan M.D.
[2024-05-02 01:47] LABS: Troponin I 419.7 ng/L (0.00-60.4)
--- NOTE | 2024-05-02 01:50 | PC.NURSE ---
called Mukul HOFFMAN at [facility] with new trop results. She will notify hospitalist on patients arrival
== END 2024-05-02 01:36 | disposition short-term general hospital (02) ==
PROVIDERS: Emergency Provider Internal Medicine Critical Care Medicine; PCP Internal Medicine
DX: I25.110 Atherosclerotic heart disease of native coronary artery with unstable angina pectoris (principal); I10 Essential (primary) hypertension; E78.5 Hyperlipidemia, unspecified; Z79.899 Other long term (current) drug therapy
CPT/HCPCS: 36415; 71045; 80053; 83605; 83880; 84484; 85025; 85610; 85730; 93005; 99285; A9270

== ENCOUNTER 2024-05-02 02:14 | Inpatient (IN) | payer MEDICARE, SELFPAY ==
[2024-05-02] VITALS (29 sets, daily range): BP systolic 105–179; BP diastolic 53–95; PULSE 53–67; RESP 14–22; TEMP 36.6–37.8; O2SAT 95–100; BMI 28.5
--- NOTE | 2024-05-02 02:41 | ADMGEN ---
0212: This patient, José Damon, was admitted to IMU Room 213-01. Patient/family oriented to hospital policies and general routines including ID bracelet, bed and alarms, visiting hours, pain management, procedures, bathroom and other care routines, personal items, smoking policy, room service/diet, and visiting hours. Information on how to activate the Rapid Response Team has been discussed. Patient/Family are encouraged to report perceived risks to care and to ask questions if they do not understand what they are told or what they should do.
--- NOTE | 2024-05-02 02:58 | PM.IMHP ---
H&P: HPI History of Present Illness Date/Time: 05/02/24 02:58 Chief Complaint: Chest pain Narrative: 68-year-old male known to me from prior hospitalization with history of coronary disease with 2 LAD stents in 2016, hypercholesterolemia now well controlled on medications, essential hypertension, BPH and glaucoma who presented to the ER at [facility] due to chest pain. The patient reports that he was riding his bike and tried to do a little bit more today the knee usually would antibiotic correction into his ride started having substernal chest pain. He thought that it was heartburn as he had had a burger and fries prior to his workout. He stated that he was already on his way back home when the chest pain started. He had also noticed that his heart rate jumped when he developed the chest pain with his heart rate in the 130s. Usually when he is working and his heart rate is in the low 100s. He did not have any palpitations, diaphoresis, nausea, vomiting or lightheadedness. He did not feel his heart racing. He still produce both by coma. After he had been home for an hour and half to 2 hours and was waiting for his heartburn to improve when it did not improve the decided to come to the ER. His pain was heaviness the felt as if something was sitting on his chest. (I did discuss with the patient that this is not the usual type of pain that would be associated with heartburn.) When his symptoms had not improved he decided to call his daughter who is an ICU nurse at our facility and she directed him to go to the ER. His initial troponin at the outside ER was 29 (normal range 0 to 60). Patient's blood pressures were elevated at home he does not know how high they were. But on arrival to the outside facility is blood pressure was 178/81. The blood pressure did come down after receiving full-dose aspirin and 1 dose of nitroglycerin. He has been taking his medications as directed. He is on Celebrex twice a day due to arthritis pain. He has been able to cut down his statin therapy in the last year so due to his efforts in lifestyle changes. He reports that he is trying to do aerobic exercise 2 to 3 times a week usually riding his bike 3-5 miles. He has also been weightlifting. He denies any reproducibility to his pain. Review of Systems Review of Systems: 12 systems were reviewed with pertinent positives and negatives per HPI. Except as documented in the HPI, all other systems were reviewed and are negative. [facility] Past Medical History Medical History (Updated 05/02/24 @ 06:03 by Angy Downs DO) Bilateral inguinal hernia BPH (benign prostatic hyperplasia) BPPV (benign paroxysmal positional vertigo) CAD (coronary artery disease) Essential hypertension Hyperlipidemia Total cholesterol to is on 2016 HDL 40 Surgical History Surgical History H/O vasectomy History of foot surgery History of intravascular stent placement Hx of inguinal hernia repair Laparoscopic bilateral inguinal hernia repair with mesh, da Sohail assisted on 09/13/23 [facility] Family History Family History (Updated 05/02/24 @ 06:08 by Angy Downs DO) Father Heart disease Over 80 years old The patient lived to an age older than 90 Mother Over 80 years old Social History Social History (Updated 05/02/24 @ 06:06 by Angy Downs DO) Social History: He has been for 46 years. He has 1 daughter who is a nurse at our facility. He is a lifelong nonsmoker. He occasionally drinks about 8 alcoholic beverages a week. He denies illicit substance use. Code status: Full code Surrogate decision maker: Smoking status: Never smoker Alcohol intake: current Drinks per week: 8 Alcohol use details: beer Substance use: never Substance use type: does not use Do You Feel Safe in your Home?: Yes Lack of Transportation: No Lack of Food: Never True Current Housing
[2024-05-02] MEDS: HEPARIN SOD/D5W 100 UNITS/ML 25,000 UNITS/250 ML BAG 10 UNITS IV CONT (03:00)
[2024-05-02] MEDS: HEPARIN SODIUM 5,000 UNITS/ML VIAL 4000 UNITS IV PUSH (03:02)
[2024-05-02 04:03] LABS: Cholesterol 136 mg/dL (0-200); HDL Direct 45 mg/dL; Triglycerides 58 mg/dL (<150)
[2024-05-02 04:14] LABS: LDL Cholesterol Direct 87 mg/dL
[2024-05-02 04:20] LABS: Troponin I 0.689 ng/mL (0.000-0.034)
[2024-05-02 04:28] LABS: Partial Thromboplastin Time > 200.0 Seconds (22.3-36.8)
[2024-05-02] MEDS: SODIUM CHLORIDE 0.9% IV 1,000 ML 100 ML IV CONT (04:44)
--- NOTE | 2024-05-02 04:51 | PC.NURSE ---
Discussed having patient request his bring in home Finasteride. Patient states he will ask her in the AM.
--- NOTE | 2024-05-02 06:22 | ECG_ITS ---
Test Date: 2024-05-02 06:31:47 Measurements Intervals [place] Rate: 66 P: 37 [place]: 213 QRS: -27 QRSD: 111 T: -14 QT: 415 QTc: 436 Interpretive Statements SINUS RHYTHM WITH FIRST DEGREE AV BLOCK WITH OCCASIONAL VENTRICULAR PREMATURE COMPLEXES BORDERLINE LEFT AXIS DEVIATION [QRS AXIS < -20] LOW QRS VOLTAGE IN PRECORDIAL LEADS [QRS DEFLECTION < 1.0 mV IN CHEST LEADS] MODERATE INTRAVENTRICULAR CONDUCTION DELAY [110+ ms QRS DURATION] MODERATE VOLTAGE CRITERIA FOR LVH, CONSIDER NORMAL VARIANT [MEETS CRITERIA IN ONE OF: R(aVL), S(V1), R(V5), R(V5/V6)+S(V1)] MODERATE T-WAVE ABNORMALITY, CONSIDER ANTERIOR ISCHEMIA [-0.1+ mV T WAVE IN V3/V4] ABNORMAL ECG Electronically Signed On 05-02-2024 15:15:56 CDT by Gavino Rajan M.D.
[2024-05-02] MEDS: METOPROLOL TARTRATE 25 MG TABLET PO ×2 (09:06→20:25)
[2024-05-02] MEDS: ATORVASTATIN 40 MG TABLET PO (09:06)
[2024-05-02] MEDS: lisinopriL 2.5 MG TABLET PO (09:06)
[2024-05-02] MEDS: TIMOLOL MALEATE 0.5% OP SOLN 5 ML BOTTLE 1 DROP LEFT EYE ×2 (09:06→20:24)
[2024-05-02] MEDS: THERAPEUTIC MULTIVITAMINS/MINERALS TAB (*BKC) 1 TABLET PO (09:06)
[2024-05-02 10:00] LABS: Partial Thromboplastin Time 64.9 Seconds (22.3-36.8)
[2024-05-02] MEDS: HEPARIN SODIUM 5,000 UNITS/ML VIAL 3500 UNITS IV PUSH (10:14)
--- NOTE | 2024-05-02 10:42 | PHAR ---
HOME MED VERIFIED. [facility] [id number] FINASTERIDE 5 MG 1 TAB DAILY. THIS DOES NOT MATCH THE ORDERED MED OF FINASTERIDE 1 MG EVERY OTHER DAY.
--- NOTE | 2024-05-02 11:15 | PM.CNCAR ---
Assessment and Plan Assessment and plan (1) Non-STEMI (non-ST elevated myocardial infarction): Code(s): I21.4 - Non-ST elevation (NSTEMI) myocardial infarction Status: Acute Assessment and Plan: Patient's chest pain and clinical syndrome consistent with a non ST elevation myocardial infarction. Pain started the process of exercise. He does workup but his bike ride yesterday was extreme for him as compared to usual. Will possibly do include a stress-induced type of cardiomyopathy but this is ACS from plaque rupture until proven otherwise. Continue heparin. Continue aspirin, statin, metoprolol. I did talk about risks benefits alternatives and he is agreeable to proceed with a coronary angiogram to define his anatomy. This will be performed later this today. He will be kept NPO until catheterization performed. (2) HTN (hypertension): Qualifiers: Hypertension type: primary hypertension Qualified Code(s): I10 - Essential (primary) hypertension Code(s): I10 - Essential (primary) hypertension Status: Acute Assessment and Plan: Continue metoprolol and lisinopril (3) CAD (coronary artery disease): Code(s): I25.10 - Atherosclerotic heart disease of [place] coronary artery without angina pectoris Status: Acute Assessment and Plan: As detailed above (4) Hyperlipidemia: Code(s): E78.5 - Hyperlipidemia, unspecified Status: Acute Assessment and Plan: On statin but slightly above goal (5) GERD (gastroesophageal reflux disease): Code(s): K21.9 - Gastro-esophageal reflux disease without esophagitis Status: Acute History of Present Illness History of Present Illness Consult date/time: 05/02/24 11:15 Requesting physician: Angy Downs DO Consult reason: chest pain Reason For Visit: Chest Pain Narrative: Reason for consultation: Chest pain Date of service 05/02/2024 Requesting provider: Dr. Downs History: Patient is a 68-year-old male patient of mine who does have a known history of CAD with 2 stents to the LAD in 2016. He recently had a stress test showed a fixed defect but no ischemia. Yesterday however he developed acute left-sided chest achiness that did not radiate. This started on a 10 mi bike ride. This was more than he typically does. He rode for 5 miles then turned around started come back and on his return he started developed chest pain. This persisted and he decided to go to the emergency department further workup evaluation. In the emergency department [place] he was given nitroglycerin which did improve his symptoms. Overall his chest pain lasted a couple of hours. Initial troponins were unremarkable but they have since turned positive and consistent with non ST-elevation myocardial infarction. He states his symptoms are similar to previous [place]. He denies any recent syncope, presyncope, paroxysmal nocturnal dyspnea, orthopnea, edema palpitations. Review of Systems Review of Systems: All systems reviewed & are unremarkable except as noted in HPI and below Constitutional: Constitutional: Denies body ache(s) Eyes: Eyes: Denies blurry vision ENT: Reports Normal hearing present Cardiovascular: Cardiovascular: Reports chest pain Respiratory: Respiratory: Denies chest congestion Gastrointestinal: Gastrointestinal: Denies abdominal pain Genitourinary: Genitourinary: Denies hematuria Musculoskeletal: Musculoskeletal: Denies back pain Integumentary/Breasts: Skin/Breast: Denies erythema Neurologic: Denies Abnormal speech present Psychiatric: Psychiatric: Denies anxiety Endocrine: Endocrine: Denies excessive sweating Hematologic/Lymphatic: Hematologic/Lymphatic: Denies easy bleeding Allergic/Immunologic: Allergic/Immunologic: Denies GI upset with certain foods PMFSH Past Medical History Medical History (Updated 05/02/24 @ 11:20 by Gavino Rajan MD) Bilateral inguinal hernia BPH (benign pro
--- NOTE | 2024-05-02 13:50 | WPDMODSED ---
Moderate Sedation Note-Pt Data Patient Data Diagnosis: NSTEMI Present Complaint: NSTEMI Procedure to be performed/Plan: Coronary angiography, left heart cath, +/- PCI Allergies Allergy/AdvReac Type Severity Reaction Status Date / Time No Known Allergies Allergy Verified 04/11/24 11:19 Home Medications Medication Instructions Recorded Confirmed Type atorvastatin 80 mg tablet 40 mg PO DAILY 07/01/21 05/02/24 History finasteride 1 mg tablet 1 mg PO DAILY 07/01/21 05/02/24 History lisinopril 2.5 mg tablet 2.5 mg PO DAILY 07/01/21 05/02/24 History celecoxib 200 mg capsule 200 mg PO BID 04/28/23 05/02/24 History multivitamin with minerals-folic 1 tablet PO DAILY 04/28/23 05/02/24 History acid 0.4 mg tablet timolol maleate 0.5 % eye drops 1 drp LEFT EYE BID 04/28/23 05/02/24 History aspirin 81 mg capsule 81 mg PO HS 05/02/24 05/02/24 History metoprolol tartrate 25 mg tablet 25 mg PO BID 05/02/24 05/02/24 History Current Medications: Active Medications Acetaminophen (Acetaminophen 325 Mg Tablet) 650 mg PO Q4H PRN PRN Reason: Mild Pain (1-3) or Fever Aspirin (Aspirin 81 Mg Enteric Tablet) 81 mg PO HS [facility] Stop: 06/01/24 20:59 Atorvastatin Calcium (Atorvastatin 40 Mg Tablet) 40 mg PO DAILY [facility] Last Admin: 05/02/24 09:06 Dose: 40 mg Sodium Chloride (Normal Saline Iv) 1,000 mls @ 100 mls/hr IV CONT .Q10H [facility] Last Admin: 05/02/24 04:44 Dose: 100 mls/hr Sodium Chloride (Normal Saline Iv) 1,000 mls @ 125 mls/hr IV CONT .Q8H ONE Stop: 05/02/24 21:32 Lisinopril (Lisinopril 2.5 Mg Tablet) 2.5 mg PO DAILY [facility] Last Admin: 05/02/24 09:06 Dose: 2.5 mg Metoprolol Tartrate (Metoprolol Tartrate 25 Mg Tablet) 25 mg PO Q12HR [facility] Last Admin: 05/02/24 09:06 Dose: 25 mg Miscellaneous Information (Finasteride 1mg Nonform Can Pt Bring From Home?) 0 each XX CLARIFY MELISSA Stop: 06/01/24 00:00 Morphine Sulfate (Morphine Sulfate (*Crx) 2 Mg/Ml Inj) 2 mg IV PUSH Q2H PRN PRN Reason: Chest Pain Multivitamins/Calcium (Therapeutic Multivitamins/Minerals Tab (*Bkc)) 1 tablet PO DAILY [facility] Last Admin: 05/02/24 09:06 Dose: 1 tablet Non-Formulary Medication (Finasteride) 1 mg PO Q48H MELIS[facility] Stop: 06/01/24 08:59 Pantoprazole Sodium (Pantoprazole 40 Mg Tablet) 40 mg PO QAM MELISSA Ticagrelor (Ticagrelor 90 Mg Tablet) 90 mg PO Q12HR MELISSA Timolol Maleate (Timolol Maleate 0.5% Op Soln 5 Ml Bottle) 1 drop LEFT EYE Q12HR [facility]EL[facility] Last Admin: 05/02/24 09:06 Dose: 1 drop Sedation/Anesthesia: No previous sedation/anesthesia problems (including family history). [facility] Past Medical History Medical History Bilateral inguinal hernia BPH (benign prostatic hyperplasia) BPPV (benign paroxysmal positional vertigo) CAD (coronary artery disease) Essential hypertension Hyperlipidemia Total cholesterol to is on 2016 HDL 40 Surgical History Surgical History H/O vasectomy History of foot surgery History of intravascular stent placement Hx of inguinal hernia repair Laparoscopic bilateral inguinal hernia repair with mesh, da Sohail assisted on 09/13/23 [facility] Family History Family History Father Heart disease Over 80 years old The patient lived to an age older than 90 Mother Over 80 years old Social History Social History Social History: He has been for 46 years. He has 1 daughter who is a nurse at our facility. He is a lifelong nonsmoker. He occasionally drinks about 8 alcoholic beverages a week. He denies illicit substance use. Code status: Full code Surrogate decision maker: Smoking status: Never smoker Alcohol intake: current Drinks per week: 8 Alcohol use details: beer Substance use: never Substance use type: does not use Do You Feel Safe in your Home?: Yes Lack of Smith
--- NOTE | 2024-05-02 13:51 | WPDHPUPDATE1 ---
History and Physical Update Update Date/Time: 05/02/24 13:51 History and Physical has been reviewed, including an updated exam of the patient. There are NO changes in the patient's condition. Risks, benefits, and alternatives have been discussed and questions answered. Patient agrees to proceed with procedure.
--- NOTE | 2024-05-02 13:51 | WPDCARDPROC ---
Cardiac Cath Procedure Note Date of procedure:: 05/02/24 Performing physician:: CATHETERIZATION LABORATORY REPORT Procedure Date: 05/02/2024 Case Consultant: Whit Song M.D., [facility]? Referring Physician: Marlon Rajan M.D. Anesthesia: Versed and Fentanyl were ordered and given in my presence at 12:02, procedure ended at 13:22. Supervision of nurse monitored moderate sedation with Versed and Fentanyl was provided for 80 minutes. Total of Versed 1mg, Fentanyl 75mcg, Morphine 2mg were administered by the [employer] Apprentice RN Eden Rodriguez. Pre-op Diagnosis: NSTEMI Post-op Diagnosis: 1. Significant proximal LAD stenosis s/p PCI with ALY x 1. With stenting of the proximal LAD, the first diagonal branch (which was a small caliber branch) occluded off. Despite multiple balloon angioplasties of that diagonal branch in an attempt to restore flow to that branch, unable to restore flow. 2. Patent stent in OM-1. Procedure(s): 1. Moderate sedation 2. Ultrasound-guided access of the right radial artery 3. Coronary angiography 4. PCI of the proximal LAD with ALY x 1 (4.5mm x 15mm Christopher ALY) 5. Balloon angioplasty of first diagonal branch 6. IVUS of LAD Access Site: Right radial artery Brief History and Clinical Indications: Patient is a 68 year old male with CAD with prior mid LAD and OM stents who is referred for [facility] for NSTEMI. All risks, benefits and alternatives to left heart catheterization with or without percutaneous coronary intervention was discussed at length with the patient. Risk of complications including but not limited to bleeding, infection, arrhythmia, stroke, worsening kidney function, blood loss, groin hematoma, limb loss, emergency coronary artery bypass grafting, and even were discussed with the patient and all questions were answered. The patient understood and wished to proceed. Time out called, patient name, date of , medical record number, allergies, procedure performed, identify Case Consultant, patient and staff member concurred with accurate data, procedure carried on. Findings: LEFT HEART CATHETERIZATION FINDINGS: 1. Left main: The left main coronary artery is widely patent without any significant obstructive disease. 2. Left anterior descending: The proximal LAD has a 70-80% stenosis. Patent stent in the mid LAD. Remainder of the LAD has luminal irregularities. The first diagonal branch is a small caliber branch with luminal irregularities. 3. Left circumflex: The mid LCX has mild 40-50% disease. Patent stent in OM-1. Remainder of OM-1 branch has luminal irregularities. OM-2 has luminal irregularities. No significant obstructive angiographic disease. 4. Right coronary artery: The RCA has mild diffuse disease without any significant obstructive angiographic disease. The RCA is the dominant vessel. Description of Procedure and PCI: Informed consent signed and placed in the chart. Patient transferred to starch factory laborer room. Prepped and draped in usual sterile fashion. 2% lidocaine injected subcutaneously in right wrist area. 22-gauge venipuncture catheter used to access the right radial artery under ultrasound guidance. 6-FR slender sheath placed in right radial artery. Nitroglycerine and Verapamil were given intraarterial through the sheath. Versacore wire advanced under fluoroscopy 5F Tig 4 diagnostic catheter engaged Left Main Coronary Artery. 5F Tig 4 diagnostic catheter engaged Right Coronary Artery Multiple orthogonal angiogram obtained and reviewed Angiomax was used for anticoagulation. 6F CLS 3.0 guide catheter was used to intubate the left main. 0.014 [place] coronary wire was passed in to the distal LAD. The lesion was pre-dilated with a 3.0 mm x 20 mm balloon inflated to high YADI IVUS catheter advanced distal to the lesion and reference measurements obtained. A 4.5 mm x 15 mm [employer]onic [place] ALY was successfully deployed into proximal LAD. Intracoronary NTG was administered There was pl
[2024-05-02] MEDS: NITROGLYCERIN OINTMENT 1 INCH DOSE (14:01)
[2024-05-02] MEDS: BELLADONNA ALK/PHENOB ELIX 10 ML, MAG HYDROX/ALUMINUM HYD/SIMETH 30 ML, LIDOCAINE HCL 2... PO (14:05)
--- NOTE | 2024-05-02 14:08 | ECG_ITS ---
Test Date: 2024-05-02 14:22:49 Measurements Intervals [place] Rate: 52 P: 42 CT: 179 QRS: -26 QRSD: 106 T: -9 QT: 420 QTc: 393 Interpretive Statements SINUS BRADYCARDIA BORDERLINE LEFT AXIS DEVIATION [QRS AXIS < -20] NONSPECFIC ST AND T WAVE ABNORMALITY ABNORMAL ECG Electronically Signed On 05-02-2024 16:26:40 CDT by Gavino Rajan M.D.
[2024-05-02] MEDS: SODIUM CHLORIDE 0.9% IV 1,000 ML 125 ML IV CONT (14:34)
[2024-05-02] MEDS: PANTOPRAZOLE 40 MG TABLET PO (14:34)
[2024-05-02] MEDS: HYDROcodone/acetaminophen (*CRX) 5-325 MG TABLET 1 TAB PO (14:42)
--- NOTE | 2024-05-02 14:44 | PM.IMPN ---
Progress Note: A&P Assessment and Plan (1) Non-STEMI (non-ST elevated myocardial infarction): Code(s): I21.4 - Non-ST elevation (NSTEMI) myocardial infarction Status: Acute Assessment and Plan: The patient had chest pain during exercise and repeat troponin demonstrated elevation consistent with non STEMI. Initial 2 EKGs demonstrates no evidence of ischemia repeat EKG has been ordered here but has not yet been obtained. Patient started on a heparin drip on arrival to the hospital. Cardiology consulted. Will continue patient on 81 mg aspirin therapy. Resume patient's home metoprolol and lisinopril. Continue statin therapy. The fasting lipid panel normal. Will hold the patient's Celebrex as this can room increased risk for coronary artery disease/events. Plan for cardiac catheterization this afternoon. (2) HTN (hypertension): Qualifiers: Hypertension type: primary hypertension Qualified Code(s): I10 - Essential (primary) hypertension Code(s): I10 - Essential (primary) hypertension Status: Acute Assessment and Plan: continue metoprolol and lisinopril (3) BPH (benign prostatic hyperplasia): Qualifiers: Lower urinary tract symptom presence: symptoms present Lower urinary tract symptom detail: unspecified Qualified Code(s): N40.1 - Benign prostatic hyperplasia with lower urinary tract symptoms Code(s): N40.0 - Benign prostatic hyperplasia without lower urinary tract symptoms Status: Acute Assessment and Plan: continue finasteride Plan The patient's blood pressures were initially uncontrolled at the outside hospital but have normalized with resolution of his pain. Will continue patient's home eye drops for glaucoma and finasteride for his BPH. Patient's daughter was updated as to his clinical course with the patient's permission. Patient has been admitted as observation status. Subjective Date/time seen: 05/02/24 14:44 Interval history: patient doing well. Chest pain is resolved without any associated nausea, vomiting or pain radiation. Plan for cardiac catheterization this afternoon. Patient resting comfortably in bed. and daughter at bedside. Exam Narrative: GENERAL: Comfortable, no acute distress HENMT: moist mucous membranes EYES: EOM intact b/l NECK: no lymphadenopathy RESPIRATORY: clear to auscultation, no increased respiratory effort CARDIO: Regular rate and rhythm GI: soft, nontender, bowel sounds present SKIN/EXTREMITIES: no rashes, no edema, no redness or tenderness NEURO: PROM intact, answers questions appropriately, A&O x4 Objective Data Vital Signs Vital Signs: Vital Signs - 24 hr 05/02/24 03:08 05/02/24 02:13 05/02/24 05:28 Temperature 98 F 98.2 F Pulse Rate 62 56 L Respiratory Rate 18 18 Blood Pressure 143/63 H 142/76 H Pulse Oximetry 99 99 97 Oxygen Delivery Room Air 05/02/24 04:00 05/02/24 06:00 05/02/24 07:30 Temperature 98.8 F Pulse Rate 59 L 65 59 L Respiratory Rate 16 Blood Pressure 129/69 Pulse Oximetry 100 Oxygen Delivery 05/02/24 09:06 05/02/24 08:00 05/02/24 08:00 Temperature Pulse Rate 66 58 L Respiratory Rate Blood Pressure Pulse Oximetry Oxygen Delivery Room Air 05/02/24 10:00 Temperature Pulse Rate 57 L Respiratory Rate Blood Pressure Pulse Oximetry Oxygen Delivery Intake/Output Intake/Output: Intake & Output 04/29/24 04/30/24 05/01/24 05/02/24 23:59 23:59 23:59 23:59 Intake Total 72.3 Output Total 1 Balance 71.3 Meds/Results Medications: Active Medications Generic Name Dose Route Start Last Admin Trade Name Freq PRN Reason Stop Dose Admin Acetaminophen 650 mg 05/02/24 03:06 Acetaminophen 325 Mg Tablet PO Q4H PRN Mild Pain (1-3) or Fever Aspirin 81 mg 05/02/24 21:00 Aspirin 81 Mg Enteric Tablet PO 06/01/24 20:59 [facility]
--- NOTE | 2024-05-02 15:06 | ECG_ITS ---
Test Date: 2024-05-02 15:34:32 Measurements Intervals [place] Rate: 62 P: 106 PA: 196 QRS: 80 QRSD: 143 T: 81 QT: 416 QTc: 424 Interpretive Statements ELECTRONIC ATRIAL PACEMAKER ELECTRONIC VENTRICULAR PACEMAKER ATYPICAL ECG Compared to ECG 05/02/2024 14:22:49 Sinus bradycardia no longer present Electronically Signed On 05-02-2024 16:36:15 CDT by Gavino Rajan M.D.
--- NOTE | 2024-05-02 18:54 | PC.NURSE ---
Patient returned to floor via wheelchair at 1844. Patient settled back into room sitting in chair. VSS
[2024-05-02] MEDS: TICAGRELOR 90 MG TABLET PO (20:25)
[2024-05-02] MEDS: ASPIRIN 81 MG ENTERIC TABLET PO (20:25)
[2024-05-02] MEDS: FINASTERIDE 5 MG TABLET PO (20:56)
[2024-05-02] MEDS: ACETAMINOPHEN 325 MG TABLET 650 MG PO (22:07)
[2024-05-03] VITALS (12 sets, daily range): BP systolic 117–137; BP diastolic 57–66; PULSE 49–79; RESP 16–20; TEMP 35.7–37.2; O2SAT 98–100
[2024-05-03] MEDS: ACETAMINOPHEN 325 MG TABLET 650 MG PO ×3 (04:27→12:18)
[2024-05-03 07:59] LABS: Basophils Percent Auto 0.4 % (0.2-1.2); Eosinophils Absolute Auto 0.3 K/mm3 (0-0.3); Eosinophils Percent Auto 3.2 % (0-4.4); Hemoglobin 12.5 g/dL (14.0-18.0); Immature Granulocyte Absolute 0.04 K/mm3 (0.00-0.031); Immature Granulocyte Percent A 0.4 % (0-0.5); Lymphocytes Absolute Auto 1.21 K/mm3 (0.9-3.2); Mean Corpuscular HGB Conc 32.9 g/dl (32-36); Mean Corpuscular Hemoglobin 30.6 pg (26-34); Mean Corpuscular Volume 92.9 fl (80-100); Mean Platelet Volume 10.2 fl (7.4-10.4); Monocytes Absolute Auto 0.8 K/mm3 (0.1-0.6); Neutrophils Absolute Auto 7.7 K/mm3 (1.3-6.7); Platelet Count Result 266 k/mm3 (150-375); Red Blood Count 4.09 M/mm3 (4.6-6.20); Red Cell Distribution Width 12.4 % (11.5-14.5); White Blood Count 10.1 K/mm3 (4.5-10.0)
[2024-05-03] MEDS: TICAGRELOR 90 MG TABLET PO (08:31)
[2024-05-03] MEDS: PANTOPRAZOLE 40 MG TABLET PO (08:31)
[2024-05-03] MEDS: METOPROLOL TARTRATE 25 MG TABLET PO (08:31)
[2024-05-03] MEDS: ATORVASTATIN 40 MG TABLET PO (08:31)
[2024-05-03] MEDS: THERAPEUTIC MULTIVITAMINS/MINERALS TAB (*BKC) 1 TABLET PO (08:31)
[2024-05-03] MEDS: TIMOLOL MALEATE 0.5% OP SOLN 5 ML BOTTLE 1 DROP LEFT EYE (08:31)
[2024-05-03] MEDS: lisinopriL 2.5 MG TABLET PO (08:31)
--- NOTE | 2024-05-03 10:24 | PM.PNCARD ---
Progress Note: A&P Assessment and Plan (1) Non-STEMI (non-ST elevated myocardial infarction): Code(s): I21.4 - Non-ST elevation (NSTEMI) myocardial infarction Status: Acute Assessment and Plan: Continue aspirin, statin, metoprolol, lisinopril. Continue Brilinta 90 mg p.o. b.i.d.. If not cost effective, will need to transition him to clopidogrel. PCI to the proximal LAD yesterday. See cath report but jailed diagonal branch did occlude. He feels fine at this point is stable for discharge. Scheduled follow-up on May 23 at 11:00 a.m. (2) HTN (hypertension): Qualifiers: Hypertension type: primary hypertension Qualified Code(s): I10 - Essential (primary) hypertension Code(s): I10 - Essential (primary) hypertension Status: Acute Assessment and Plan: Continue metoprolol and lisinopril (3) CAD (coronary artery disease): Code(s): I25.10 - Atherosclerotic heart disease of [place] coronary artery without angina pectoris Status: Acute Assessment and Plan: As detailed above (4) Hyperlipidemia: Code(s): E78.5 - Hyperlipidemia, unspecified Status: Acute Assessment and Plan: On statin but slightly above goal (5) GERD (gastroesophageal reflux disease): Code(s): K21.9 - Gastro-esophageal reflux disease without esophagitis Status: Acute Subjective Date/time seen: 05/03/24 10:24 Interval history: 68-year-old admitted for or non-STEMI Date of service 05/03/2024: Feels okay. No chest pain. No shortness breath. Review of Systems Review of Systems: All systems reviewed & are unremarkable except as noted in HPI and below Constitutional: Constitutional: Denies body ache(s) and Denies excessive sweating Eyes: Eyes: Denies blurry vision ENT: Reports Normal hearing present Cardiovascular: Cardiovascular: Reports chest pain Respiratory: Respiratory: Denies chest congestion Gastrointestinal: Gastrointestinal: Denies abdominal pain Genitourinary: Genitourinary: Denies hematuria Musculoskeletal: Musculoskeletal: Denies back pain Integumentary/Breasts: Skin/Breast: Denies erythema Neurologic: Reports Normal hearing present and Denies Abnormal speech present Psychiatric: Psychiatric: Denies anxiety Endocrine: Endocrine: Denies excessive sweating Hematologic/Lymphatic: Hematologic/Lymphatic: Denies easy bleeding Allergic/Immunologic: Allergic/Immunologic: Denies GI upset with certain foods Exam Narrative: Alert oriented appears stated age appears to be in no acute distress Const: General: comfortable and no acute distress HENMT: Ears: TM's normal bilaterally Face/Nose/Sinus: Normal nares present Eyes: General: appearance normal, both eyes and all related structures Sclera: sclerae normal Neck: Neck: supple and no JVD Carotids: no bruits Chest: Other: No reproducible chest wall pain to palpation Resp: Effort & Inspection: normal respiratory effort Auscultation: clear to auscultation bilaterally Cardio: Rate: regular rate Rhythm: regular rhythm Heart sounds: no murmurs GI: Inspection: non-distended Auscultation: normal bowel sounds Skin: General skin exam: normal color and no rashes or lesions noted Neuro: General: gait normal Cranial nerves: Yes Normal hearing present Speech: normal speech and No Abnormal speech present Extrem: General: normal to inspection Psych: Mental Status: mental status grossly normal Affect: normal affect Objective Data Vital Signs Vital Signs: Vital Signs - 24 hr 05/02/24 13:45 05/02/24 14:00 05/02/24 14:15 Temperature Pulse Rate 53 L 53 L 55 L Pulse Rate [Bilateral Pedal (Dorsalis Pedis) Palpation] Pulse Rate [Right Radial Palpation] Respiratory Rate 16 15 22 H Blood Pressure 150/73 H 172/77 H 179/95 H Pulse Oximetry 98 97 98 Oxygen Delivery Room Air Room Air Room Air 05/02/24 14:30 05/02/24 15:00 05/02/24 15:30 Temperature
--- NOTE | 2024-05-03 13:44 | PM.DS ---
DS: Admitting Diagnosis Discharge Date 05/03/24 Admitting Diagnosis Non-STEMI DS: Discharge Diagnosis Discharge Diagnosis (1) Non-STEMI (non-ST elevated myocardial infarction): Code(s): I21.4 - Non-ST elevation (NSTEMI) myocardial infarction Status: Acute (2) HTN (hypertension): Qualifiers: Hypertension type: primary hypertension Qualified Code(s): I10 - Essential (primary) hypertension Code(s): I10 - Essential (primary) hypertension Status: Acute (3) BPH (benign prostatic hyperplasia): Qualifiers: Lower urinary tract symptom presence: symptoms present Lower urinary tract symptom detail: unspecified Qualified Code(s): N40.1 - Benign prostatic hyperplasia with lower urinary tract symptoms Code(s): N40.0 - Benign prostatic hyperplasia without lower urinary tract symptoms Status: Acute DS: Summary Hospital Course Hospital Course: 68-year-old male known to me from prior hospitalization with history of coronary disease with 2 LAD stents in 2016, hypercholesterolemia now well controlled on medications, essential hypertension, BPH and glaucoma who presented to the ER at [facility] due to chest pain. He did not have any palpitations, diaphoresis, nausea, vomiting or lightheadedness. He did not feel his heart racing. After he had been home for an hour and half to 2 hours and was waiting for his heartburn to improve when it did not improve the decided to come to the ER. His initial troponin at the outside ER was 29 (normal range 0 to 60). Patient's blood pressures were elevated at home he does not know how high they were. But on arrival to the outside facility is blood pressure was 178/81. The blood pressure did come down after receiving full-dose aspirin and 1 dose of nitroglycerin. He has been taking his medications as directed. He is on Celebrex twice a day due to arthritis pain, this put on hold due to increased risk of cardiovascular events. He has been able to cut down his statin therapy in the last year so due to his efforts in lifestyle changes. his chest pain and clinical syndrome consistent with non ST elevation myocardial function. He was taken to the blender laborer on 05/02/2024. Cardiac catheterization showed significant proximal LAD stenosis. With stenting of the proximal LAD the 1st diagonal branch occluded off. Despite multiple balloon angioplasties of that diagonal branch in attempt to restore flow it was unable to be performed. Patient's chest pain resolved. His metoprolol was increased and Brilinta was added to medication regimen. He is cleared to discharge by Cardiology. His lab vital signs are stable and he is medically clear for discharge at this time. Time Spent with Patient Time attestation: Total time spent providing and/or coordinating discharge services: Exam Narrative: GENERAL: Comfortable, no acute distress HENMT: moist mucous membranes EYES: EOM intact b/l NECK: no lymphadenopathy RESPIRATORY: clear to auscultation, no increased respiratory effort CARDIO: Regular rate and rhythm GI: soft, nontender, bowel sounds present SKIN/EXTREMITIES: no rashes, no edema, no redness or tenderness NEURO: PROM intact, answers questions appropriately, A&O x4 DS: Data Data Completed and Pending Labs on day of discharge: Labs from last 24 hours 05/03/24 07:35 WBC 10.1 H RBC 4.09 L Hgb 12.5 L Hct 38.0 L MCV 92.9 MCH 30.6 MCHC 32.9 RDW 12.4 Plt Count 266 MPV 10.2 Immature Gran % (Auto) 0.4 Neut % (Auto) 76.0 H Lymph % (Auto) 12.0 L Hawkins % (Auto) 8.0 Eos % (Auto) 3.2 Baso % (Auto) 0.4 Lymph # (Auto) 1.21 Hawkins # (Auto) 0.8 H Eos # (Auto) 0.3 Baso # (Auto) 0.0 Abs Immat Gran (auto) 0.04 H Absolute Neuts (auto) 7.7 H Absolute Nucleated RBC 0.000 Nucleated RBC % 0.0 Discharge Plan Discharge Consulting providers: Kassidy Conn Discharging Clinician: Smiley Garcias Patient Disposition: Home, Self-
== END 2024-05-03 14:20 | disposition home or self-care (01) | DRG 322 ==
PROVIDERS: Internal Medicine; Admitting Provider Internal Medicine; PCP Internal Medicine; Visit Provider Internal Medicine
PROC: 027034Z Dilation of Coronary Artery, One Artery with Drug-eluting Intraluminal Device, Percutaneous Approach (ICD-10-PCS; CPT 93454; principal; 2024-05-02 11:00)
PROC: 027034Z Dilation of Coronary Artery, One Artery with Drug-eluting Intraluminal Device, Percutaneous Approach (ICD-10-PCS; 2024-05-02 11:00)
PROC: 027034Z Dilation of Coronary Artery, One Artery with Drug-eluting Intraluminal Device, Percutaneous Approach (ICD-10-PCS; 2024-05-02 11:00)
DX: I21.4 Non-ST elevation (NSTEMI) myocardial infarction (principal); I25.10 Atherosclerotic heart disease of native coronary artery without angina pectoris; I10 Essential (primary) hypertension; E78.00 Pure hypercholesterolemia, unspecified; N40.0 Benign prostatic hyperplasia without lower urinary tract symptoms; H40.9 Unspecified glaucoma; H81.10 Benign paroxysmal vertigo, unspecified ear; Z95.5 Presence of coronary angioplasty implant and graft; Z79.82 Long term (current) use of aspirin
CPT/HCPCS: 36415; 80061; 84484; 85025; 85730; 92978; 93005; 93454; 94762; A9270; C1725; C1753; C1769; C1874; C1887; C1894; C9600; G0269; G0378; J0583; J1644; J2250; J2270; J2305; J3010; J7030; J7040

== ENCOUNTER 2024-05-06 08:13 | Outpatient (CLI) | payer MEDICARE, SELFPAY ==
--- NOTE | ~2024-05-06 | XR_ITS ---
EXAMINATION: XR small bowel follow through DATE: 05/06/2024 10:24 INDICATION: Diarrhea. TECHNIQUE: Oral contrast was administered, and a time course of radiographs of the abdomen was obtain ed. Fluoroscopy of the small bowel was performed. Fluoroscopy exposure time was 0.1 minutes. The tota l number of images was 14. COMPARISON: CT abdomen and pelvis 03/22/2024 FINDINGS: There are no dilated loops of bowel. No abnormal mass or stricture. The terminal ileum is normal. Tra nsit time from the stomach to proximal colon was approximately 1 hour 30 minutes. IMPRESSION: 1. Normal small bowel series. Reviewed, dictated and finalized at location A.
== END 2024-05-06 08:14 | disposition home or self-care (01) ==
LOC: ANHIMG 08:14
PROVIDERS: PCP Internal Medicine; Visit Provider Nurse Practitioner Family
DX: R19.5 Other fecal abnormalities (principal)
CPT/HCPCS: 74250

== ENCOUNTER 2024-05-17 10:06 | Outpatient (CLI) | payer MEDICARE, SELFPAY ==
[2024-05-17 11:15] LABS: Hematocrit 39.5 % (37.0-46.0); Hemoglobin 13.6 g/dL (12.4-15.3); Immature Reticulocyte Fraction 11.9 % (2.0-16.52); Mean Corpuscular HGB Conc 34.4 g/dL (32-36); Mean Corpuscular Hemoglobin 30.9 pg (27.0-31.0); Mean Corpuscular Volume 89.8 fL (78.0-102.0); Platelet Count Result 339 K/mm3 (150-420); Reticulocyte Hemoglobin Conten 34.3 pg (28.0-35.0); Reticulocyte Percent 1.25 % (0.50-1.50); Reticulocytes Absolute 0.06 M/mm3 (0.02-0.10); White Blood Count 6.9 K/mm3 (4.8-10.8)
[2024-05-17 12:29] LABS: Alanine Aminotransferase 46 U/L (16-63); Albumin Level 3.9 g/dL (3.4-5.0); Alkaline Phosphatase 70 U/L (46-116); Anion Gap 7 mmol/L (4-12); Aspartate Amino Transferase 27 U/L (15-37); Bilirubin,Total 0.6 mg/dL (0.00-1.00); Blood Urea Nitrogen 17 mg/dL (7-18); Calcium 8.9 mg/dL (8.5-10.1); Carbon Dioxide 29 mmol/L (21-32); Chloride 103 mmol/L (98-108); Estimated Glomerular Filt Rate > 60; Ferritin 205 ng/mL (26-388); Glucose 93 mg/dL (70-99); Iron 66 ug/dL (65-175); Osmolality Calculated 289 mOsm/kg (285-295); Percent Iron Saturation 27 % (12-57); Potassium 4.8 mmol/L (3.5-5.1); Sodium 139 mmol/L (136-145); Total Protein 6.6 g/dL (6.4-8.2); Vitamin B12 880 pg/mL (193-986)
== END 2024-05-17 10:07 | disposition home or self-care (01) ==
LOC: CHSLAB 10:08
PROVIDERS: PCP Internal Medicine; Visit Provider Internal Medicine
DX: D64.9 Anemia, unspecified (principal); I10 Essential (primary) hypertension
CPT/HCPCS: 36415; 80053; 82607; 82728; 83540; 83550; 85027; 85046

== ENCOUNTER 2024-07-24 10:39 | Outpatient (CLI) | payer MEDICARE, SELFPAY ==
[2024-07-24 13:51] LABS: Toxigenic C. Diff POSITIVE (NEGATIVE)
[2024-07-31 17:03] LABS: Calprotectin, Stool 147 mcg/g
[2024-08-05 22:58] LABS: Pancreatic Elastase, Stool >500 mcg/g
== END 2024-07-24 10:40 | disposition home or self-care (01) ==
LOC: ANHLAB 10:40
PROVIDERS: PCP Internal Medicine; Visit Provider Nurse Practitioner
DX: K58.0 Irritable bowel syndrome with diarrhea (principal); R19.5 Other fecal abnormalities
CPT/HCPCS: 82653; 83993; 87045; 87269; 87427; 87449; 87493

== ENCOUNTER 2024-09-11 11:00 | Outpatient (RCR) | payer MEDICARE, SELFPAY ==
[2024-06-10 14:41] VITALS: BP 116/73; PULSE 53; RESP 16; O2SAT 99; BMI 27.6
== END 2024-09-11 17:12 | disposition home or self-care (01) ==
PROVIDERS: PCP Internal Medicine; Visit Provider Internal Medicine Cardiovascular Disease
DX: Z98.61 Coronary angioplasty status (principal)
CPT/HCPCS: 93798

== ENCOUNTER 2025-05-23 10:59 | Outpatient (CLI) | payer MEDICARE, SELFPAY ==
--- NOTE | ~2025-05-23 | XR_ITS ---
[id number] Ordering provider: Mellissa Morales MD History: . chronic neck pain stiffness, NKI . Comparison: None. FINDINGS: VERTEBRAL BODIES: Normal height and alignment. No visible fracture or subluxation. The dens is intact . Degenerative changes. Fusion at the level of C5-C6 is seen DISK SPACES: Narrowing of the disc C5-C6. Multilevel facet joint disease. Multilevel uncovertebral jennifer int osteoarthritic changes. PARASPINOUS SOFT TISSUES: No prevertebral soft tissue swelling. IMPRESSION: No acute osseous abnormality cervical spine. Degenerative disc disease at the level of C5-C6 with fusion. Reviewed, dictated and finalized at location A.
--- OUTSIDE RECORDS SUMMARY | 2025-05-23 11:06 | XMS_ITS | Referral Summary ---
Author Organization [facility] [address] Address [address] [place] [address] Care Team Providers Care Casing In Line Feeder Name Role Phone Mellissa Morales MD Primary Care Provider + [phone] Allergies No known active allergies Medications aspirin (ASPIRIN LOW-STRENGTH) 81 mg chewable tablet chew 1 tablet by oral route every day 0 0 11/22/19 17 Active finasteride (PROPECIA) 1 mg tablet take 1 tablet by oral route every day 30 5 12/05/19 17 Active Additional Information Patient taking differently: 5 mg, Reported on 11/26/2024 metoprolol (LOPRESSOR) 25 mg tablet Take 1/2 tablet by oral route twice daily. 90 tablet 3 09/28/20 18 Active Additional Information Patient taking differently: 12.5 mg oral 2 times daily, (No instructions reported), Reported on 11/26/2024 lisinopril (PRINIVIL,ZEST RIL) 2.5 mg tablet TK 1 T PO D 1 09/09/20 19 Active timolol (TIMOPTIC) 0.5 % ophthalmic solution INSTILL 1 DROP INTO LEFT EYE TWICE A DAY 01/14/20 20 Active multivitamin capsule Take 1 capsule by mouth daily Active trospium (SANCTURA) 20 mg tablet Take 1 tablet (20 mg total) by mouth 2 (two) times a day 10/15/20 24 Active atorvastatin (LIPITOR) 80 mg tablet TAKE 0.5 TABLETS BY MOUTH 2 TIMES A DAY. 90 tablet 2 02/19/20 25 Active clopidogreL (PLAVIX) 75 mg tablet TAKE 1 TABLET BY MOUTH EVERY DAY 90 tablet 1 05/14/20 25 Active clopidogreL (PLAVIX) 75 mg tablet Take 1 tablet (75 mg total) by mouth daily 90 tablet 3 05/23/20 24 025 Discontinued Active Problems Problem Noted Date Diagnosed Date Sinus bradycardia 08/09/2021 Heartburn 10/08/2019 History of DVT (deep vein thrombosis) 04/03/2019 Gastroesophageal reflux disease without esophagi tis 10/04/2017 Chest pain 02/15/2017 Overview (04/07/2017): Chest pain in adult Coronary artery disease of n ative artery of [place] heart with stable angina pectoris 11/22/2016 Overview (02/16/2017): Coronary artery disease involving [place] coronary artery of [place] heart without angina pectoris Hyperlipidemia LDL goal <70 11/22/2016 Overview (02/16/2017): Hyperlipidemia LDL goal <70 History of gastroesophageal reflux (GERD) 2016 Overview (02/16/2017): History of gastroesophageal reflux (GERD) Social History Tobacco Use Types Packs/Day Years Used Date Smoking Tobacco: Never Smokeless Tobacco: Never Tobacco Cessation:Counseling Given: Not Answered Alcohol Use Standard Drinks/Week Comments Yes 1 (1 standard drink = 0.6 oz pur e alcohol) Sex and Gender Information Value Date Recorded Sex Assigned at Not on file 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 Gender Identity Not on file Sexual Orientation Not on file Last Filed Vital Signs Vital Sign Reading Time Taken Comments Blood Pressure 110/62 11/26/2024 10:12 AM NURSE STAFF Pulse 53 11/26/2024 10:12 AM NURSE STAFF Temperature - - Respiratory Rate 14 05/31/2017 1:50 PM CDT Oxygen Saturation 99% 11/26/2024 10:12 AM NURSE STAFF Inhaled Oxygen Concentration - - Weight 86.2 kg (190 lb) 11/26/2024 10:12 AM NURSE STAFF Height 180.3 cm (5' 11) 11/26/2024 10:12 AM NURSE STAFF Body Mass Index 26.5 11/26/2024 10:12 AM NURSE STAFF Plan of Treatment Not on file Insurance MEDICARE MEDICARE AETNA SENIOR SUPPLEMENT Care Teams Casing In Line Feeder Relationship Specialty Start Date End Date Mellissa Morales MD [address] [place] [address] PCP - General 03/17/17
--- OUTSIDE RECORDS SUMMARY | 2025-05-23 11:06 | XMS_ITS | Encounter Summary ---
Author Organization [facility] Address [address] [address] Care Team Providers Care Credit Risk Modeler Name Role Phone Mellissa Morales MD Primary Care Provider + [phone] Encounter Details Date Type Department Care Team (Late st Contact Info) Description 03/20/2017 Orders Only [facility] ProviderGonzalo MD [address] [place] [address] Social History Tobacco Use Types Packs/Day Years Used Date Smoking Tobacco: Never Alcohol Use Standard Drinks/Week Comments Yes 0 (1 standard drink = 0.6 oz pur e alcohol) Sex and Gender Information Value Date Recorded Sex Assigned at Not on file 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 Historical Provider [facility] Final Result documented in this encounter Visit Diagnoses Not on filedocumented in this encounter Care Teams Credit Risk Modeler Relationship Specialty Start Date End Date Mellissa Morales MD [address] [place] [address] PCP - General 03/17/17 documented as of this encounter
--- OUTSIDE RECORDS SUMMARY | 2025-05-23 11:06 | XMS_ITS | Clinical Summary ---
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 Gender Identity Not on file Sexual Orientation Not on file Plan of Treatment Health Maintenance Due Date Last Done Comments Colorectal Cancer Screening Colonoscopy (10 Years) 1953 Hepatitis C 1971 DTaP, Tdap and Td Vaccines ( 1 - Tdap) 1972 Zoster Vaccines (1 of 2) 2003 Annual Medicare Wellness Visit 2018 Pneumococcal Vaccine: 50+ Ye ars (2 of 2 - PPSV23) 02/14/2020 02/13/2019 COVID-19 Vaccine ( - 2023-2 5 season) 2024 RSV Immunization or 60+ Years (1 - 1-dose 75+ series) 2028 Meningococcal B Vaccine Aged Out No l onger eligible based on patient's age to complete this topic Meningococcal Vaccine Aged Out No ashley kamar eligible based on patient's age to complete this topic RSV Immunizations Under 20 Months Aged Out No longer eligible based on patient's age to complete this topic Insurance MEDICARE AETNA Care Teams Shaper Hand Relationship Specialty Start Date End Date Mellissa Morales MD [address] [place] [id number] PCP - General INTERNAL MEDICINE 08/29/19
--- OUTSIDE RECORDS SUMMARY | 2025-05-23 11:06 | XMS_ITS | Clinical Summary ---
Author Organization [facility] [address] Address [address] [place] [address] Care Team Providers Care Molded Parts Inspector Name Role Phone Mellissa Morales MD Primary Care Provider + [phone] Allergies No known active allergies Medications aspirin [...] artery disease of n ative artery of [place] heart with stable angina pectoris 11/22/2016 Overview (02/16/2017): Coronary artery disease involving [place] coronary artery of [place] heart without angina pectoris Hyperlipidemia LDL goal <70 11/22/2016 Overview (02/16/2017): Hyperlipidemia LDL goal <70 History of gastroesophageal reflux (GERD) 2016 Overview (02/16/2017): History of gastroesophageal reflux (GERD) Medical History Medical History Date Comments History of vasectomy H/O: vasect praful History of gout H/O: gout Gastroesophageal reflux disease GERD Benign prostatic hyperplasia BPH - Benign prostatic hypertrophy Hx Other Medical CAD, hyperlipid emia; Comments: MAF 11/22/2016 - Family History Medical History Relation Name Comments Other Brother 2 Alive and well; Other Father Alive and well; Other Mother Alive and well; Other Sister 2 Alive and well; Relation Name Status Comments Brother 1 Alive Brother 2 Father Alive Mother Alive Sister 1 Alive Sister 2 Social History Tobacco Use Types Packs/Day Years Used Date Smoking Tobacco: Never Smokeless Tobacco: Never Tobacco Cessation:Counseling Given: Not Answered Alcohol Use Standard Drinks/Week Comments Yes 1 (1 standard drink = 0.6 oz pur e alcohol) Sex and Gender Information Value Date Recorded Sex Assigned at Not on file 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 Gender Identity Not on file Sexual Orientation Not on file Obstetrics History Last Filed Vital Signs Vital Sign Reading Time Taken Comments Blood Pressure 110/62 11/26/2024 10:12 AM MIDDLE SCHOOL VOLLEYBALL COACH Pulse 53 11/26/2024 10:12 AM MIDDLE SCHOOL VOLLEYBALL COACH Temperature - - Respiratory Rate 14 05/31/2017 1:50 PM CDT Oxygen Saturation 99% 11/26/2024 10:12 AM MIDDLE SCHOOL VOLLEYBALL COACH Inhaled Oxygen Concentration - - Weight 86.2 kg (190 lb) 11/26/2024 10:12 AM MIDDLE SCHOOL VOLLEYBALL COACH Height 180.3 cm (5' 11) 11/26/2024 10:12 AM MIDDLE SCHOOL VOLLEYBALL COACH Body Mass Index 26.5 11/26/2024 10:12 AM MIDDLE SCHOOL VOLLEYBALL COACH Plan of Treatment Health Maintenance Due Date Last Done Comments Colon Cancer Screening-Colonoscopy 1955 Depression Screening 1953 Hepatitis C Screening 1953 Hepatitis B Screening 1971 Zoster Vaccine (1 of 2) 2003 Well Visit 65+ 2018 Fall Risk Assessment 04/14/2021 04/14/2020 Influenza Vaccine (#1) 2025 9, 08/14/2018, 09/21/2017 DTaP/Tdap/Td Vaccine (2 - Td or Tdap) 03/15/202701/2017 Pneumococcal vaccine 65+ Completed 02/13/2019, 1012/2017 Insurance MEDICARE MEDICARE AETNA SENIOR SUPPLEMENT Care Teams Molded Parts Inspector Relationship Specialty Start Date End Date Mellissa Morales MD [address] [place] [address] PCP - General 03/17/17
--- OUTSIDE RECORDS SUMMARY | 2025-05-23 11:06 | XMS_ITS | Encounter Summary ---
Author Organization [facility] Address [address] [facility] [address] [place] [address] Care Team Providers Care Back Order Clerk Name Role Phone Jennifer Edwards DO Primary Care Provider +- [phone] Jennifer Edwards DO Primary Care Provider +- [phone] Mellissa Morales MD Primary Care Provider [phone] Encounter Details Date Type Department Care Team (Late st Contact Info) Description 10/17/2016 Orders Only [facility] ProviderGonzalo MD [address] [place] [address] Social History Tobacco Use Types Packs/Day Years Used Date Smoking Tobacco: Never Assessed Sex and Gender Information Value Date Recorded Sex Assigned at Not on file 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 Historical Provider [facility] Final Result documented in this encounter Visit Diagnoses Not on filedocumented in this encounter Care Teams Back Order Clerk Relationship Specialty Start Date End Date Jennifer Edwards DO [address] [place] [address] PCP - General 02/10/17 03/16/17 Jennifer Edwards DO [address] [place] [address] PCP - General 11/22/16 02/09/17 Mellissa Morales MD [address] [place] [address] PCP - General 03/17/17 documented as of this encounter
== END 2025-05-23 11:00 | disposition home or self-care (01) ==
LOC: CHSIMG 11:02
PROVIDERS: PCP Internal Medicine; Visit Provider Internal Medicine
DX: M50.322 Other cervical disc degeneration at C5-C6 level (principal); Z98.1 Arthrodesis status
CPT/HCPCS: 72040

== ENCOUNTER 2025-06-14 08:57 | Outpatient (CLI) | payer MEDICARE, SELFPAY ==
--- NOTE | ~2025-06-14 | MR_ITS ---
MRI of the cervical spine Clinical History: Chronic pain Technique: Axial T2-weighted and gradient images, and sagittal T1-weighted, T2-weighted, and STIR butch ges were acquired. Findings: There is no fracture or subluxation of the cervical spine. Vertebral bodies maintain normal height and alignment. No bone marrow signal abnormality seen. At C2-C3, there is no disc bulge or herniation. There is mild facet hypertrophy. No spinal canal sten osis, cord compression, or neural foraminal narrowing. At C3-C4, there is degenerative disc narrowing with diffuse disc osteophyte complex. There is severe canal stenosis and associated cord compression at this level. There is advanced bilateral neural fora carmen narrowing. At C4-C5, there is moderate degenerative distended. There is disc osteophyte complex with mild to mod erate canal stenosis and possible minimal flattening the ventral cord. There is severe left neural fo raminal narrowing. There is mild right neural foraminal narrowing. At C5-C6, there is severe degenerative disc narrowing with possible partial fusion across the disc sp elaina. There is minimal canal stenosis without jourdan cord compression. There is probable moderate bilat eral neural foraminal narrowing. At C6-C7, there is no disc bulge or herniation. No spinal canal stenosis or cord compression. No defi nite neural foraminal narrowing. No abnormal signal seen in the spinal cord. Paravertebral soft tissues are unremarkable. Impression: Severe degenerative spondylosis at C3-C4, with severe canal stenosis and cord compression, as well as advanced bilateral neural foraminal narrowing. Moderate degenerative change at C4-C5 and C5-C6, as above. Reviewed, dictated and finalized at [facility]. Impression: Severe degenerative spondylosis at C3-C4, with severe canal stenosis and cord c ompression, as well as advanced bilateral neural foraminal narrowing. Moderate degenerative change at C4-C5 and C5-C6, as above.
--- OUTSIDE RECORDS SUMMARY | 2025-06-14 08:59 | XMS_ITS | Clinical Summary ---
Author Organization [facility] [address] Address [address] [place] [address] Care Team Providers Care Commercial Litigation Attorney Name Role Phone Mellissa Morales MD Primary Care Provider [phone] Allergies No known active allergies Medications aspirin (ASPIRIN LOW-STRENGTH) 81 mg chewable tablet chew 1 tablet by oral route every day 0 0 7 Active finasteride (PROPECIA) 1 mg tablet take 1 tablet by oral route every day 30 5 7 Active Additional Information Patient taking differently:1 mgEvery other day, Reported on 06/06/2025 metoprolol (LOPRESSOR) 25 mg tablet Take 1/2 tablet by oral route twice daily. 90 tablet 3 8 Active Additional Information Patient taking differently: 12.5 mg oral 2 times daily, (No instructions reported), Reported on 06/06/2025 lisinopril (PRINIVIL,ZEST RIL) 2.5 mg tablet TK 1 T PO D 1 9 Active timolol (TIMOPTIC) 0.5 % ophthalmic solution INSTILL 1 DROP INTO LEFT EYE TWICE A DAY 0 Active multivitamin capsule Take 1 capsule by mouth daily Active trospium (SANCTURA) 20 mg tablet Take 1 tablet (20 mg total) by mouth 2 (two) times a day 4 Active atorvastatin (LIPITOR) 80 mg tablet TAKE 0.5 TABLETS BY MOUTH 2 TIMES A DAY. 90 tablet 2 5 Active clopidogreL (PLAVIX) 75 mg tablet TAKE 1 TABLET BY MOUTH EVERY DAY 90 tablet 1 5 025 Discontin ued(Thera py completed ) Active Problems Problem Noted Date Diagnosed Date Hypersomnolence 06/06/2025 Sinus bradycardia 08/09/2021 Heartburn 10/08/2019 History of DVT (deep vein thrombosis) 04/03/2019 Gastroesophageal reflux disease without esophagi tis 10/04/2017 Chest pain 02/15/2017 Overview (04/07/2017): Chest pain in adult Coronary artery disease of n ative artery of [place] heart with stable angina pectoris 11/22/2016 Overview (02/16/2017): Coronary artery disease involving [place] coronary artery of [place] heart without angina pectoris Hyperlipidemia LDL goal <70 11/22/2016 Overview (02/16/2017): Hyperlipidemia LDL goal <70 History of gastroesophageal reflux (GERD) 2016 Overview (02/16/2017): History of gastroesophageal reflux (GERD) Encounters Date Type Department Care Team Description 06/06/2025 10:45 AM CDT Office Visit [facility] Cardiology at [address] [place] [address] Gavino Rajan MD Coronary artery disease of [place] artery of [place] heart with stable angina pectoris (Primary Dx); Hyperlipidemia LDL goal <70; Sinus bradycardia; Gastroesophageal reflux disease without esophagitis; Hypersomnolence from Last 3 Months Medical History Medical History Date Comments History [...] on file 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 Gender Identity Not on file Sexual Orientation Not on file Obstetrics History Last Filed Vital Signs Vital Sign Reading Time Taken Comments Blood Pressure 112/70 06/06/2025 10:42 AM CDT Pulse 50 06/06/2025 10:42 AM CDT Temperature - - Respiratory Rate 14 05/31/2017 1:50 PM CDT Oxygen Saturation 99% 06/06/2025 10:42 AM CDT Inhaled Oxygen Concentration - - Weight 85.7 kg (189 lb) 06/06/2025 10:42 AM CDT Height 180.3 cm (5' 11) 06/06/2025 10:42 AM CDT Body Mass Index 26.36 06/06/2025 10:42 AM CDT Plan of Treatment Health Maintenance Due Date Last Done Comments Colon Cancer Screening-Colonoscopy 1955 Depression Screening 1955 Hepatitis C Screening 1953 Hepatitis B Screening 1971 Zoster Vaccine (1 of 2) 2003 Well Visit 65+ 2018 Fall Risk Assessment 04/14/2021 04/14/2020 Influenza Vaccine (#1) 2025 9, 08/14/2018, 09/21/2017 DTaP/Tdap/Td Vaccine (2 - Td or Tdap) 03/15/202701/2017 Pneumococcal vaccine 65+ Completed 02/13/2019, 1012/2017 Procedures Procedure Name Priority Date/Time Associated Diagnosis Comments POCT LIPID PANEL Routine 06/06/2025 10:3 6 AM CDT Coronary artery disease of [place] artery of [place] heart with stable angina pectoris Hyperlipidemia LDL goal <70 from Last 3 Months Results * POCT lipid panel (06/06/2025 10:36 AM CDT) Cholesterol, POC 127 <200 MG/DL HDL, POC 41 >=40 mg/dL Triglycerides, POC 83 <=149 mg/dL LDL Cholesterol POC 70 <=129 mg/dL Chol/HDL Ratio, POC 3.1 NONE Non-HDL Cholesterol, POC 87 NONE mg/dL Cholesterol Total, POC 127 30 - 199 mg/dL Capillary blood 06/06/2025 1 0:36 AM CDT Gavino Rajan MD POINT OF CARE TEST ORDERA BLES Final Result from Last 3 Months Insurance MEDICARE MEDICARE AETNA SENIOR SUPPLEMENT Care Teams Commercial Litigation Attorney Relationship Specialty Start Date End Date Mellissa Morales MD [address] [place] [address] PCP - General 03/17/17
--- OUTSIDE RECORDS SUMMARY | 2025-06-14 08:59 | XMS_ITS | Encounter Summary ---
Author Organization [facility] Address [address] [address] Care Team Providers Care Nurse Aide Evaluator Name Role Phone Mellissa Morales MD Primary Care Provider + [phone] Encounter Details Date Type Department Care Team (Late st Contact Info) Description 03/20/2017 Orders Only [facility] ProviderGonzalo MD [address] [place] [address] Social History Tobacco Use Types Packs/Day Years Used Date Smoking Tobacco: Never Alcohol Use Standard Drinks/Week Comments Yes 0 (1 standard drink = 0.6 oz pur e alcohol) Sex and Gender Information Value Date Recorded Sex Assigned at Not on file 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
--- OUTSIDE RECORDS SUMMARY | 2025-06-14 08:59 | XMS_ITS | Referral Summary ---
Author Organization [facility] [address] Address [address] [place] [address] Care Team Providers Care Bi Data Modeler Name Role Phone Mellissa Morales MD Primary Care Provider [phone] Encounters Date Type Department Care Team Description 06/06/2025 10:45 AM CDT Office Visit [facility] Cardiology at [address] [place] [phone] Gavino Rajan MD Coronary artery disease of [place] artery of [place] heart with stable angina pectoris (Primary Dx); Hyperlipidemia LDL goal <70; Sinus bradycardia; Gastroesophageal reflux disease without esophagitis; Hypersomnolence from Last 3 Months Allergies No known active allergies Medications aspirin [...] artery disease of n ative artery of [place] heart with stable angina pectoris 11/22/2016 Overview (02/16/2017): Coronary artery disease involving [place] coronary artery of [place] heart without angina pectoris Hyperlipidemia LDL goal [...] on file 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
--- OUTSIDE RECORDS SUMMARY | 2025-06-14 08:59 | XMS_ITS | Encounter Summary ---
Author Organization [facility] Address [address] [facility] [address] [place] [address] Care Team Providers Care Training Assistant Name Role Phone Jennifer Edwards DO Primary Care Provider +- [phone] Jennifer Edwards DO Primary Care Provider +- [phone] Mellissa Morales MD Primary Care Provider [phone] Encounter Details Date Type Department Care Team (Late st Contact Info) Description 10/17/2016 Orders Only [facility] ProviderGonzalo MD [address] [place] [address] Social History Tobacco Use Types Packs/Day Years Used Date Smoking Tobacco: Never Assessed Sex and Gender Information Value Date Recorded Sex Assigned at Not on file 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
== END 2025-06-14 08:58 | disposition home or self-care (01) ==
LOC: CHSIMG 08:58
PROVIDERS: PCP Internal Medicine; Visit Provider Internal Medicine
DX: M54.2 Cervicalgia (principal); M43.02 Spondylolysis, cervical region
CPT/HCPCS: 72141

== ENCOUNTER 2025-09-17 10:02 | Outpatient (CLI) | payer MEDICARE, SELFPAY ==
--- NOTE | ~2025-09-17 | XR_ITS ---
XR shoulder RT min 2V 09/17/2025 10:39 Indication: Right shoulder pain Procedure: 4 views right shoulder Comparison: No prior studies for comparison. Findings: There is polyarticular osteoarthritis, moderate in the glenohumeral joint. No acute fracture or traumatic malalignment. No soft tissue abnormality. No foreign bodies. Impression: 1: Moderate polyarticular osteoarthritis. Reviewed, dictated and finalized at location O. THERAPIST Impression: 1: Moderate polyarticular osteoarthritis.
--- OUTSIDE RECORDS SUMMARY | 2025-09-18 09:52 | XMS_ITS | Clinical Summary ---
Author Organization [facility] [place] [address] Address [address] [place] [address] Care Team Providers Care Pumping Station Engineer Name Role Phone Mellissa Morales MD Primary Care Provider [phone] Allergies No known active allergies Medications aspirin [...] (No instructions reported), Reported on 06/06/2025 lisinopril (PRINIVIL,ZESTR IL) 2.5 mg tablet TK 1 T PO [...] A DAY. 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
--- OUTSIDE RECORDS SUMMARY | 2025-09-18 09:53 | XMS_ITS | Encounter Summary ---
Author Organization [facility] Address [address] [address] Care Team Providers Care Clinic Lpn Name Role Phone Mellissa Morales MD Primary Care Provider + [phone] Encounter Details Date Type Department Care Team (Late st Contact Info) Description 03/20/2017 Orders Only [facility] ProviderGonzalo MD [address] [place] [address] Social History Tobacco Use Types Packs/Day Years Used Date Smoking Tobacco: Never Alcohol Use Standard Drinks/Week Comments Yes 0 (1 standard drink = 0.6 oz pur e alcohol) Sex and Gender Information Value Date Recorded Sex Assigned at Not on file 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
--- OUTSIDE RECORDS SUMMARY | 2025-09-18 09:53 | XMS_ITS | Encounter Summary ---
Author Organization [facility] Address [address] [facility] [address] [place] [address] Care Team Providers Care Travel Director Name Role Phone Jennifer Edwards DO Primary Care Provider [phone]- [phone] Jennifer Edwards DO Primary Care Provider +- [phone] Mellissa Morales MD Primary Care Provider [phone] Encounter Details Date Type Department Care Team (Late st Contact Info) Description 10/17/2016 Orders Only [facility] ProviderGonzalo MD [address] [place] [address] Social History Tobacco Use Types Packs/Day Years Used Date Smoking Tobacco: Never Assessed Sex and Gender Information Value Date Recorded Sex Assigned at Not on file 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
--- OUTSIDE RECORDS SUMMARY | 2025-09-18 09:53 | XMS_ITS | Clinical Summary ---
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 Gender Identity Not on file Sexual Orientation Not on file Plan of Treatment Health Maintenance Due Date Last Done Comments Colorectal Cancer Screening Colonoscopy (10 Years) 1953 Hepatitis C 1971 DTaP, Tdap and Td Vaccines ( 1 - Tdap) 1972 Zoster Vaccines (1 of 2) 2003 Annual Medicare Wellness Visit 2018 Pneumococcal Vaccine: 50+ Ye ars (2 of 2 - PCV20 or PCV21) 02/14/2020 02/13/2019 COVID-19 Vaccine ( - 2024-2 6 season) 2025 Influenza Adult (#1) 2025 RSV Immunization or 60+ Years (1 - 1-dose 75+ series) 2028 Hepatitis A Vaccines Aged Out No long er eligible based on patient's age to complete this topic Meningococcal B Vaccine Aged Out No l onger eligible based on patient's age to complete this topic Meningococcal Vaccine Aged Out No ashley kamar eligible based on patient's age to complete this topic RSV Immunizations Under 20 Months Aged Out No longer eligible based on patient's age to complete this topic Insurance MEDICARE AETNA Care Teams Potato Chip Maker Relationship Specialty Start Date End Date Mellissa Morales MD [address] [place] [address] PCP - General INTERNAL MEDICINE 08/29/19
== END 2025-09-17 10:03 | disposition home or self-care (01) ==
LOC: CHSLAB 10:05
PROVIDERS: PCP Internal Medicine; Visit Provider Internal Medicine
DX: M25.511 Pain in right shoulder (principal); M15.9 Polyosteoarthritis, unspecified
CPT/HCPCS: 73030

== ENCOUNTER 2025-10-21 14:14 | Outpatient (CLI) | payer MEDICARE, SELFPAY ==
[2025-10-21 15:30] LABS: Prostate Specific Antigen 1.3 ng/mL (< OR = 4.0)
--- OUTSIDE RECORDS SUMMARY | 2025-10-21 16:27 | XMS_ITS | Clinical Summary ---
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
--- OUTSIDE RECORDS SUMMARY | 2025-10-21 16:27 | XMS_ITS | Encounter Summary ---
Author Organization [facility] Address [address] [address] Care Team Providers Care Photoengraver Apprentice Name Role Phone Mellissa Morales MD Primary Care Provider + [phone] Encounter Details Date Type Department Care Team (Late st Contact Info) Description 03/20/2017 [facility] Only [facility] ProviderGonzalo MD [address] [place] [address] Social History Tobacco Use Types Packs/Day Years Used Date Smoking Tobacco: Never Alcohol Use Standard Drinks/Week Comments Yes 0 (1 standard drink = 0.6 oz pur e alcohol) Sex and Gender Information Value Date Recorded Sex Assigned at Not on file 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
--- OUTSIDE RECORDS SUMMARY | 2025-10-21 16:27 | XMS_ITS | Encounter Summary ---
Author Organization [facility] Address [address] [facility] [address] [place] [address] Care Team Providers Care Rn Placement Name Role Phone Jennifer Edwards DO Primary Care Provider +- [phone] Jennifer Edwards DO Primary Care Provider +- [phone] Mellissa Morales MD Primary Care Provider [phone] Encounter Details Date Type Department Care Team (Late st Contact Info) Description 10/17/2016 Orders Only [facility] ProviderGonzalo MD [address] [place] [address] Social History Tobacco Use Types Packs/Day Years Used Date Smoking Tobacco: Never Assessed Sex and Gender Information Value Date Recorded Sex Assigned at Not on file 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
--- OUTSIDE RECORDS SUMMARY | 2025-10-21 16:27 | XMS_ITS | Clinical Summary ---
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
== END 2025-10-21 14:15 | disposition home or self-care (01) ==
PROVIDERS: PCP Internal Medicine; Visit Provider Urology
DX: R97.20 Elevated prostate specific antigen [PSA] (principal)
CPT/HCPCS: 36415; 84153

== ENCOUNTER 2025-11-08 10:11 | Outpatient (CLI) | payer MEDICARE, SELFPAY ==
--- NOTE | ~2025-11-08 | MR_ITS ---
EXAMINATION: MR shoulder RT wo con DATE: 11/08/2025 11:08 INDICATION: Right shoulder pain. TECHNIQUE: Magnetic resonance imaging (MRI) of the right shoulder was performed without intravenous contrast. Sequences included axial PD-weighted FS FSE, coronal oblique PD-weighted FS FSE and T2-weighted FS FSE, and sagittal oblique T2-weighted FS FSE and T1-weighted FSE. COMPARISON: Right shoulder radiographs 09/17/2025 FINDINGS: Coracoacromial arch: The acromion undersurface is flat in morphology (type I). There is severe acromioclavicular joint osteoarthritis including inferiorly directed osteophytes. There is moderate subacromial/subdeltoid bursitis. Rotator cuff: There is severe supraspinatus and infraspinatus tendinopathy. Teres minor tendon is normal. There is severe infraspinatus tendinopathy with partial-thickness interstitial tear. There is no asymmetric fatty atrophy of the rotator cuff muscle bellies. Biceps tendon and glenoid labrum: Biceps tendon is in bicipital groove. There is moderate intra-articular biceps tendinopathy. There is widespread tearing of the glenoid labrum. Fluid: There is a moderate-sized glenohumeral joint effusion. Bones/cartilage: There is full-thickness cartilage loss of humeral head superiorly. There is full-thickness cartilage loss of glenoid inferiorly and anteriorly. Glenohumeral joint osteophytes are noted. IMPRESSION: 1. Severe rotator cuff tendinopathy with interstitial tear of infraspinatus tendon. 2. Severe glenohumeral joint chondrosis. 3. Severe acromioclavicular joint osteoarthritis. 4. Moderate intra-articular biceps tendinopathy. 5. Moderate-sized glenohumeral joint effusion. 6. Moderate subacromial/subdeltoid bursitis. Reviewed, dictated and finalized at location [facility]. [facility] SALES CONSULTANT IMPRESSION: 1. Severe rotator cuff tendinopathy with interstitial tear of infraspinatus ten don. 2. Severe glenohumeral joint chondrosis. 3. Severe acromioclavicular joint osteoarthritis. 4. Moderate intra-articular biceps tendinopathy. 5. Moderate-sized glenohumeral joint effusion. 6. Moderate subacromial/subdeltoid bursitis.
--- OUTSIDE RECORDS SUMMARY | 2025-11-08 10:15 | XMS_ITS | Clinical Summary ---
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
--- OUTSIDE RECORDS SUMMARY | 2025-11-08 10:15 | XMS_ITS | Encounter Summary ---
Author Organization [facility] Address [address] [facility] [address] [place] [address] Care Team Providers Care Soldering Machine Operator Name Role Phone Jennifer Edwards DO Primary Care Provider +- [phone] Jennifer Edwards DO Primary Care Provider [phone]- [phone] Mellissa Morales MD Primary Care Provider [phone] Encounter Details Date Type Department Care Team (Late st Contact Info) Description 10/17/2016 [facility] Only [facility] ProviderGonzalo MD [address] [place] [address] Social History Tobacco Use Types Packs/Day Years Used Date Smoking Tobacco: Never Assessed Sex and Gender Information Value Date Recorded Sex Assigned at Not on file 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
--- OUTSIDE RECORDS SUMMARY | 2025-11-08 10:15 | XMS_ITS | Encounter Summary ---
Author Organization [facility] Medical [facility] Address [address] [address] Care Team Providers Care Hospital Superintendent Name Role Phone Mellissa Morales MD Primary Care Provider + [phone] Encounter Details Date Type Department Care Team (Late st Contact Info) Description 03/20/2017 Orders Only [facility] ProviderGonzalo MD [address] [place] [address] Social History Tobacco Use Types Packs/Day Years Used Date Smoking Tobacco: Never Alcohol Use Standard Drinks/Week Comments Yes 0 (1 standard drink = 0.6 oz pur e alcohol) Sex and Gender Information Value Date Recorded Sex Assigned at Not on file 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
== END 2025-11-08 10:12 | disposition home or self-care (01) ==
LOC: CHSIMG 10:13
PROVIDERS: PCP Internal Medicine; Visit Provider Internal Medicine
DX: M25.511 Pain in right shoulder (principal); S46.811A Strain of other muscles, fascia and tendons at shoulder and upper arm level, right arm, initial encounter; M94.211 Chondromalacia, right shoulder; M19.011 Primary osteoarthritis, right shoulder; M75.21 Bicipital tendinitis, right shoulder; M25.411 Effusion, right shoulder; M75.51 Bursitis of right shoulder
CPT/HCPCS: 73221